=== PATIENT | female | born 1940 | race Caucasian/White ===

== ENCOUNTER 2019-01-29 11:15 | Outpatient (RCR) | payer MEDICARE, OTHER, SELFPAY ==
--- NOTE | 2018-12-21 11:20 | PT.OIE ---
Current Diagnoses Unilateral primary osteoarthritis, right knee (12/21/18) Pain in right knee (12/21/18) Stiffness of right knee, not elsewhere classified (12/21/18) Muscle weakness (generalized) (12/21/18) Other abnormalities of gait and mobility (12/21/18) Other fracture of upper end of right tibia, initial encounter for closed fracture (12/21/18) Provider Visit Care Team Role Provider Type Yosef Rivas MD Family Provider Physician Primary Care Provider Specialty: Family Practice Address: [address] [place] [address], [id number] Email: [email or web address] MD Attending Provider Physician Specialty: Orthopedic Surgery Address: [address] [place] [address], [id number] Email: [email or web address] Physical Therapy Initial Evaluation PT-OP-A Visit Information Start: 12/21/18 12:13 Freq: Status: Active Protocol: Document 12/21/18 11:20 RCC (Rec: 12/21/18 12:49 [email or web address]) Out-Patient Physical Therapy Visit Information Visit Information Visit Type Initial Evaluation Visit Start Time 11:20 Visit Stop Time 12:10 Total Visit Minutes 50 Visit Number 1 Number of SLD EDUCATIONAL AIDE Visits 0 Evaluation Information Evaluation Date 12/21/18 PT-OP-B Current Condition Start: 12/21/18 12:13 Freq: Status: Active Protocol: Document 12/21/18 11:20 RCC (Rec: 12/21/18 12:49 RCC [email or web address]) Current Condition History of Current Condition Onset Date 2017 Current Complaints R knee pain, unable to walk community distances History of Current Condition Pt is a 77 y/o female presenting to physical therapy with a c/o R knee pain and difficulty with walking, onset 2017. Pt states that she initially injured her R knee getting out of her son's car, twisting, and felt a popping in the R knee. She reports she tore her lateral meniscus. Pt states that during surgery, her bone was cut resulting in fracture of the tibia. She had to have an additional surgery 2 weeks later for an ORIF- screws to stabilize the tibia. Pt went to [facility] s/p surgery and then also did OP PT at [facility]. She admits that she never got back to walking like she did prior to surgeries, and that she cannot now even walk around the block with her dog due to imbalances, pain and fatigue. 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, HTN, Therapy/Recovery high cholesterol PT-OP-C Subjective Start: 12/21/18 12:13 Freq: Status: Active Protocol: Document 12/21/18 11:20 RCC (Rec: 12/21/18 12:49 [facility] [email or web address]) OP-PT Subjective Patient Comments Patient Comments Pt reports that she has not been the same since her past surgeries in 2017 OP-PT Pain Assessment Location R knee Intensity 3 Scale Used Numeric (1 - 10) Pain Aggravating Factors Activity Walking PT-OP-D Balance Start: 12/21/18 12:13 Freq: Status: Active Protocol: Document 12/21/18 11:20 RCC (Rec: 12/21/18 12:49 [facility] [email or web address]) Balance Tests Single Limb Standing Single Limb- Right <1 sec Single Limb- Left 3 sec with increased sway PT-OP-E Functional Tests Start: 12/21/18 12:13 Freq: Status: Active Protocol: Document 12/21/18 11:20 RCC (Rec: 12/21/18 12:49 RCC [email or web address]) Functional Tests 6 Minute Walk Test Distance 686 ft Device Used none Comments 1.91 ft/sec Dynamic Gait Index (DGI) Score 15 DGI Impairment Rating 20 to <40% Impaired (Score 15- 19) PT-OP-F Manual Assessment Start: 12/21/18 12:13 Freq: Status: Active Protocol: Document 12/21/18 11:20 RCC (Rec: 12/21/18 12:49 [facility] [email or web address]) Manual Assessments Soft Tissue Assessment Soft Tissue Mobility Assessment tenderness to palpation R adductors, pes anserine PT-OP-G Mobility & Gait Start: 12/21/18 12:13 Freq: Status: Active Protocol: Document 12/21/18 11:20 RCC (Rec: 12/21/18 12:49 RCC [email or web address]) OP Gait Assessment Comments Gait Comments decreased R knee flexion throughout gait, increased lateral sway, shortened step length bilaterally PT-OP-K Range of Motion Start: 12/21/18 12:13 Freq: Status: Active Protocol: Document 12/21/18 11:20 RCC (Rec: 12/21/18 12:49 RCC [email or web address]) Knee Goniometric Range of Motion Knee Measured in Degrees Right Patient Position Supine Flexion Active (degrees) 111 Flexion Passive (degrees) 115 Extension Active (degrees) 0 Left Patient Position Supine Flexion Active (degrees) 119 Flexion Passive (degrees) 122 Extension Active (degrees) 0 PT-OP-L Special Tests Start: 12/21/18 12:13 Freq: Status: Active Protocol: Document 12/21/18 11:20 RCC (Rec: 12/21/18 12:49 [facility] [email or web address]) Special Tests Knee Special Tests Vilma Test Test Results negative B Radha's Test Results negative B Varus- 25 Degrees Test Results negative B Varus- 0 Degrees Test Results negative B Valgus- 25 Degrees Test Results negative B Valgus- 0 Degrees Test Results negative B PT-OP-M Strength Start: 12/21/18 12:13 Freq: Status: Active Protocol: Document 12/21/18 11:20 RCC (Rec: 12/21/18 12:49 [facility] [email or web address]) Hip Strength Hip Manual Muscle Testing Right Flexion (L2) 4 Good External Rotation 4 Good Internal Rotation 4+ Good+ Left Flexion (L2) 4 Good External Rotation 4 Good Internal Rotation 4+ Good+ Knee Strength Knee Manual Muscle Testing Right Flexion (S2) 4+ Good+ Extension (L3) 4+ Good+ Left Flexion (S2) 5 Normal Extension (L3) 5 Normal Ankle/Foot Strength Ankle and Foot Manual Muscle Testing Right Dorsiflexion (L4) 5 Normal Comments SL heel raise: 4 reps Left Dorsiflexion (L4) 5 Normal Comments SL heel raise: 10 reps PT-OP-Q Treatments Start: 12/21/18 12:13 Freq: Status: Active Protocol: Document 12/21/18 11:20 RCC (Rec: 12/21/18 12:49 RCC [email or web address]) Therapeutic Exercises Supine Exercises heel slides Side right Reps/Minutes x2 with 10 sec hold bridging Supine Exercise Name with and without ball b/t knees Side bilateral Reps/Minutes x10 each SLR- hip flexion with LE ER Side right Reps/Minutes x10 Standing Exercises Heel raises Side bilateral Reps/Minutes x15 Comments increased weight shift to the R PT-OP-T Assessment and Plan Start: 12/21/18 12:13 Freq: Status: Active Protocol: Document 12/21/18 11:20 RCC (Rec: 12/21/18 12:49 RCC [email or web address]) Physical Therapy Assessment Rehab Potential Rehabilitation Potential Good Evaluation Complexity Number of Personal Factors/Comorbidities 1-2 Number of Body Systems Impaired 4 or More Clinical Presentation at Evaluation Stable Impairments Impairments Activity Tolerance Balance Functional Activities Functional Mobility Gait Pain ROM Soft Tissue Mobility Strength Goals 6 Minute Walk Test Impairment distance of 686 ft Short Term Goal (STG) Pt will ambulate >800 ft with 6 MWT, to demonstrate improved gait speed and tolerance. STG Duration 5 weeks Jail Goal (LTG) Pt will ambulate at least 950 ft with 6 MWT, to demonstrate improved gait speed and tolerance prior to d/c. LTG Duration 10 weeks LE weakness Impairment bilateral LE weakness Jail Goal (LTG) 5/5 R knee extension and flexion, bilateral hip flexion and ER to at least 4+/5 with manual muscle testing and be able to perform at least 10 repititions of SL heel raise on the R leg prior to d/c to demonstrate improvements in LE strength. Dynamic Gait Index Impairment DGI 15/24 Jail Goal (LTG) Pt will score at least 20/24 on Dynamic Gait Index to indicate a decrease in fall risk and demonstrate improved dynamic activity tolerance prior to d/c. LTG Duration 10 weeks Home Walking Program Impairment unable to tolerate walking 1 block outdoors on level ground Short Term Goal (STG) Pt will be able to walk 10 min , 3 days/wk outdoors on level ground without increased pain or fatigue. STG Duration 5 week Fitter Hand Goal (LTG) Pt will be able to walk at least 15 min, 5 days/wk outdoors on level ground without increased pain or fatigue prior to d/c (to resume as part of HEP). LTG Duration 10 weeks R knee ROM Impairment R knee AROM 0-111 Fitter Hand Goal (LTG) R knee AROM 0-120 degrees prior to d/c to assist with tolerating stairs and functional sit<->stand on low seats. LTG Duration 10 weeks Assessment Summary Assessment Pt presents with poor tolerance to gait, with increased sway with fatigue and head movements. Pt able to ambulate at a rate of 1.91 ft /sec on 6 Minute Walk Test, indicating that she may demonstrate further functional decline if not improved. Her Dynamic Gait Index score was 15/24, indicating an increased risk for falls. At this time, pt's R knee ROM is limited as well as slight weakness of the R knee compared to the L. Overall, pt is generally deconditioned, with fatigue when participating in 6 Minute Walk Test. She would greatly benefit from skilled physical therapy to progress her R knee ROM, LE strength, static and dynamic stability with standing and walking, and to progress toward a home walking program to improve cardiovascular and activity tolerance. Pt will likely require at least 10 weeks of skilled physical therapy given her length of time with declining function and inactivity s/p R knee ORIF in 2017. Physical Therapy Plan Frequency and Duration Frequency of Treatment 2x/Week Duration of Treatment 10 weeks Plan of Care Start Date 12/21/18 Plan of Care End Date 03/01/19 Therapeutic Interventions Therapeutic Interventions Aquatic Therapy Balance Training Gait Training Home Exercise Program Manual Therapy Neuromuscular Re-education Patient/Caregiver Education Self-Care/Home Management Soft Tissue Mobilization Taping Therapeutic Activities Therapeutic Exercises Modalities Cold Pack/Ice Massage Electric Stimulation Hot Packs Ultrasound Next Visit Focus/Plan Next Note Type Treatment Note Next Visit Plan dynamic and static balance training, Shuttle Recovery, hip and R knee strengthening as tolerated
--- NOTE | 2018-12-25 12:01 | PT.OTN ---
Current Diagnoses Unilateral primary osteoarthritis, right knee (12/25/18) Other fracture of upper end of right tibia, initial encounter for closed fracture (12/25/18) Physical Therapy Treatment Note PT-OP-A Visit Information Start: 12/21/18 12:13 Freq: Status: Active Protocol: Document 12/25/18 11:15 DCW (Rec: 12/25/18 12:01 DCW [id number]) Out-Patient Physical Therapy Visit Information Visit Information Visit Type Treatment Note Visit Start Time 11:15 Visit Stop Time 12:00 Total Visit Minutes 45 Visit Number 2 Number of PATROL CAPTAIN Visits 0 Evaluation Information Evaluation Date 12/21/18 PT-OP-B Current Condition Start: 12/21/18 12:13 Freq: Status: Active Protocol: Document 12/21/18 11:20 RCC (Rec: 12/21/18 12:49 RCC [email or web address]) Current Condition History of Current Condition Onset Date 2016 Current Complaints R knee pain, unable to walk community distances History of Current Condition Pt is a 77 y/o female presenting to physical therapy with a c/o R knee pain and difficulty with walking, onset 2017. Pt states that she initially injured her R knee getting out of her son's car, twisting, and felt a popping in the R knee. She reports she tore her lateral meniscus. Pt states that during surgery, her bone was cut resulting in fracture of the tibia. She had to have an additional surgery 2 weeks later for an ORIF- screws to stabilize the tibia. Pt went to [facility] s/p surgery and then also did OP PT at [facility]. She admits that she never got back to walking like she did prior to surgeries, and that she cannot now even walk around the block with her dog due to imbalances, pain and fatigue. 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 PT-OP-D Balance Start: 12/21/18 12:13 Freq: Status: Active Protocol: Document 12/21/18 11:20 RCC (Rec: 12/21/18 12:49 RCC [email or web address]) Balance Tests Single Limb Standing Single Limb- Right <1 sec Single Limb- Left 3 sec with increased sway PT-OP-E Functional Tests Start: 12/21/18 12:13 Freq: Status: Active Protocol: Document 12/21/18 11:20 RCC (Rec: 12/21/18 12:49 RCC [email or web address]) Functional Tests 6 Minute Walk Test Distance 686 ft Device Used none Comments 1.91 ft/sec Dynamic Gait Index (DGI) Score 15 DGI Impairment Rating 20 to <40% Impaired (Score 15- 19) PT-OP-F Manual Assessment Start: 12/21/18 12:13 Freq: Status: Active Protocol: Document 12/21/18 11:20 RCC (Rec: 12/21/18 12:49 RCC [email or web address]) Manual Assessments Soft Tissue Assessment Soft Tissue Mobility Assessment tenderness to palpation R adductors, pes anserine PT-OP-G Mobility & Gait Start: 12/21/18 12:13 Freq: Status: Active Protocol: Document 12/21/18 11:20 RCC (Rec: 12/21/18 12:49 RCC [email or web address]) OP Gait Assessment Comments Gait Comments decreased R knee flexion throughout gait, increased lateral sway, shortened step length bilaterally PT-OP-K Range of Motion Start: 12/21/18 12:13 Freq: Status: Active Protocol: Document 12/21/18 11:20 RCC (Rec: 12/21/18 12:49 RCC [email or web address]) Knee Goniometric Range of Motion Knee Measured in Degrees Right Patient Position Supine Flexion Active (degrees) 111 Flexion Passive (degrees) 115 Extension Active (degrees) 0 Left Patient Position Supine Flexion Active (degrees) 119 Flexion Passive (degrees) 122 Extension Active (degrees) 0 PT-OP-L Special Tests Start: 12/21/18 12:13 Freq: Status: Active Protocol: Document 12/21/18 11:20 RCC (Rec: 12/21/18 12:49 RCC [email or web address]) Special Tests Knee Special Tests Vilma Test Test Results negative B Radha's Test Results negative B Varus- 25 Degrees Test Results negative B Varus- 0 Degrees Test Results negative B Valgus- 25 Degrees Test Results negative B Valgus- 0 Degrees Test Results negative B PT-OP-M Strength Start: 12/21/18 12:13 Freq: Status: Active Protocol: Document 12/21/18 11:20 RCC (Rec: 12/21/18 12:49 RCC [email or web address]) Hip Strength Hip Manual Muscle Testing Right Flexion (L2) 4 Good External Rotation 4 Good Internal Rotation 4+ Good+ Left Flexion (L2) 4 Good External Rotation 4 Good Internal Rotation 4+ Good+ Knee Strength Knee Manual Muscle Testing Right Flexion (S2) 4+ Good+ Extension (L3) 4+ Good+ Left Flexion (S2) 5 Normal Extension (L3) 5 Normal Ankle/Foot Strength Ankle and Foot Manual Muscle Testing Right Dorsiflexion (L4) 5 Normal Comments SL heel raise: 4 reps Left Dorsiflexion (L4) 5 Normal Comments SL heel raise: 10 reps PT-OP-Q Treatments Start: 12/21/18 12:13 Freq: Status: Active Protocol: Document 12/25/18 11:15 DCW (Rec: 12/25/18 12:01 DCW [id number]) Cardio Equipment Recumbent Elliptical (Biodex) Duration (Minutes) 5 Resistance 4 Seat Position 6 Gym Equipment Cable Column (Body Solid) Hip Adduction Resistance 40# Hip Abduction Resistance 40# Shuttle Recovery Unilateral Squats Resistance 62# Shuttle Recovery Platform Stable Bilateral Squats Resistance 100# Shuttle Recovery Platform Stable Therapeutic Exercises Sitting Exercises Long Arc Quad Sitting Exercise Name LAQ Resistance 4# Reps/Minutes 2x10 Standing Exercises Step-ups Standing Exercise Name Step-ups Side bilateral Equipment Used 4 step Hamstring Curls Standing Exercise Name HS Curls Resistance 4# Reps/Minutes 2x10 Toe-taps Standing Exercise Name Toe-taps on 6 step Resistance 4# Other Exercises Resisted Fwd/Retro Ambulation Other Exercise Name Resisted Fwd/Retro Ambulation Resistance Yellow Equipment Used T-band Resisted Side-stepping Other Exercise Name Resisted Side-stepping Resistance Yellow Equipment Used T-band PT-OP-T Assessment and Plan Start: 12/21/18 12:13 Freq: Status: Active Protocol: Document 12/25/18 11:15 DCW (Rec: 12/25/18 12:01 DCW [id number]) Physical Therapy Assessment Impairments Impairments Activity Tolerance Balance Functional Activities Functional Mobility Gait Pain ROM Soft Tissue Mobility Strength Goals 6 Minute Walk Test Impairment distance of 686 ft Short Term Goal (STG) Pt will ambulate >800 ft with 6 MWT, to demonstrate improved gait speed and tolerance. STG Duration 5 weeks Shank Pinner Goal (LTG) Pt will ambulate at least 950 ft with 6 MWT, to demonstrate improved gait speed and tolerance prior to d/c. LTG Duration 10 weeks LE weakness Impairment bilateral LE weakness Half-Way Goal (LTG) 5/5 R knee extension and flexion, bilateral hip flexion and ER to at least 4+/5 with manual muscle testing and be able to perform at least 10 repititions of SL heel raise on the R leg prior to d/c to demonstrate improvements in LE strength. Dynamic Gait Index Impairment DGI 15/24 Half-Way Goal (LTG) Pt will score at least 20/24 on Dynamic Gait Index to indicate a decrease in fall risk and demonstrate improved dynamic activity tolerance prior to d/c. LTG Duration 10 weeks Home Walking Program Impairment unable to tolerate walking 1 block outdoors on level ground Short Term Goal (STG) Pt will be able to walk 10 min , 3 days/wk outdoors on level ground without increased pain or fatigue. STG Duration 5 week Shank Pinner Goal (LTG) Pt will be able to walk at least 15 min, 5 days/wk outdoors on level ground without increased pain or fatigue prior to d/c (to resume as part of HEP). LTG Duration 10 weeks R knee ROM Impairment R knee AROM 0-111 Shank Pinner Goal (LTG) R knee AROM 0-120 degrees prior to d/c to assist with tolerating stairs and functional sit<->stand on low seats. LTG Duration 10 weeks Assessment Summary Assessment Pt tolerated treatment well, reports that she was surprised these exercises are actually working me, I wouldn't expect them to. Physical Therapy Plan Frequency and Duration Frequency of Treatment 2x/Week Duration of Treatment 10 weeks Plan of Care Start Date 12/21/18 Plan of Care End Date 03/01/19 Therapeutic Interventions Therapeutic Interventions Aquatic Therapy Balance Training Gait Training Home Exercise Program Manual Therapy Neuromuscular Re-education Patient/Caregiver Education Self-Care/Home Management Soft Tissue Mobilization Taping Therapeutic Activities Therapeutic Exercises Modalities Cold Pack/Ice Massage Electric Stimulation Hot Packs Ultrasound Next Visit Focus/Plan Next Note Type Treatment Note Next Visit Plan dynamic and static balance training, Shuttle Recovery, hip and R knee strengthening as tolerated
--- NOTE | 2018-12-28 11:59 | PT.OTN ---
Current Diagnoses Unilateral primary osteoarthritis, right knee (12/28/18) Other fracture of upper end of right tibia, initial encounter for closed fracture (12/28/18) Physical Therapy Treatment Note PT-OP-A Visit Information Start: 12/21/18 12:13 Freq: Status: Active Protocol: Document 12/28/18 11:15 DCW (Rec: 12/28/18 11:59 DCW [id number]) Out-Patient Physical Therapy Visit Information Visit Information Visit Type Treatment Note Visit Start Time 11:15 Visit Stop Time 12:00 Total Visit Minutes 45 Visit Number 3 Number of NETWORK ADMINISTRATOR Visits 0 Evaluation Information Evaluation Date 12/21/18 PT-OP-B Current Condition Start: 12/21/18 12:13 Freq: Status: Active Protocol: Document 12/21/18 11:20 RCC (Rec: 12/21/18 12:49 RCC [email or web address]) Current Condition History of Current Condition Onset Date 2016 Current Complaints R knee pain, unable to walk community distances History of Current Condition Pt is a 77 y/o female presenting to physical therapy with a c/o R knee pain and difficulty with walking, onset 2017. Pt states that she initially injured her R knee getting out of her son's car, twisting, and felt a popping in the R knee. She reports she tore her lateral meniscus. Pt states that during surgery, her bone was cut resulting in fracture of the tibia. She had to have an additional surgery 2 weeks later for an ORIF- screws to stabilize the tibia. Pt went to [facility] s/p surgery and then also did OP PT at [facility]. She admits that she never got back to walking like she did prior to surgeries, and that she cannot now even walk around the block with her dog due to imbalances, pain and fatigue. 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 PT-OP-D Balance Start: 12/21/18 12:13 Freq: Status: Active Protocol: Document 12/21/18 11:20 RCC (Rec: 12/21/18 12:49 RCC [email or web address]) Balance Tests Single Limb Standing Single Limb- Right <1 sec Single Limb- Left 3 sec with increased sway PT-OP-E Functional Tests Start: 12/21/18 12:13 Freq: Status: Active Protocol: Document 12/21/18 11:20 RCC (Rec: 12/21/18 12:49 RCC [email or web address]) Functional Tests 6 Minute Walk Test Distance 686 ft Device Used none Comments 1.91 ft/sec Dynamic Gait Index (DGI) Score 15 DGI Impairment Rating 20 to <40% Impaired (Score 15- 19) PT-OP-F Manual Assessment Start: 12/21/18 12:13 Freq: Status: Active Protocol: Document 12/21/18 11:20 RCC (Rec: 12/21/18 12:49 RCC [email or web address]) Manual Assessments Soft Tissue Assessment Soft Tissue Mobility Assessment tenderness to palpation R adductors, pes anserine PT-OP-G Mobility & Gait Start: 12/21/18 12:13 Freq: Status: Active Protocol: Document 12/21/18 11:20 RCC (Rec: 12/21/18 12:49 RCC [email or web address]) OP Gait Assessment Comments Gait Comments decreased R knee flexion throughout gait, increased lateral sway, shortened step length bilaterally PT-OP-K Range of Motion Start: 12/21/18 12:13 Freq: Status: Active Protocol: Document 12/21/18 11:20 RCC (Rec: 12/21/18 12:49 RCC [email or web address]) Knee Goniometric Range of Motion Knee Measured in Degrees Right Patient Position Supine Flexion Active (degrees) 111 Flexion Passive (degrees) 115 Extension Active (degrees) 0 Left Patient Position Supine Flexion Active (degrees) 119 Flexion Passive (degrees) 122 Extension Active (degrees) 0 PT-OP-L Special Tests Start: 12/21/18 12:13 Freq: Status: Active Protocol: Document 12/21/18 11:20 RCC (Rec: 12/21/18 12:49 RCC [email or web address]) Special Tests Knee Special Tests Vilma Test Test Results negative B Radha's Test Results negative B Varus- 25 Degrees Test Results negative B Varus- 0 Degrees Test Results negative B Valgus- 25 Degrees Test Results negative B Valgus- 0 Degrees Test Results negative B PT-OP-M Strength Start: 12/21/18 12:13 Freq: Status: Active Protocol: Document 12/21/18 11:20 RCC (Rec: 12/21/18 12:49 RCC [email or web address]) Hip Strength Hip Manual Muscle Testing Right Flexion (L2) 4 Good External Rotation 4 Good Internal Rotation 4+ Good+ Left Flexion (L2) 4 Good External Rotation 4 Good Internal Rotation 4+ Good+ Knee Strength Knee Manual Muscle Testing Right Flexion (S2) 4+ Good+ Extension (L3) 4+ Good+ Left Flexion (S2) 5 Normal Extension (L3) 5 Normal Ankle/Foot Strength Ankle and Foot Manual Muscle Testing Right Dorsiflexion (L4) 5 Normal Comments SL heel raise: 4 reps Left Dorsiflexion (L4) 5 Normal Comments SL heel raise: 10 reps PT-OP-Q Treatments Start: 12/21/18 12:13 Freq: Status: Active Protocol: Document 12/28/18 11:15 DCW (Rec: 12/28/18 11:59 DCW [id number]) Cardio Equipment Recumbent Stepper (Sci-Fit) Duration (Minutes) 5 Resistance 3 Seat Position 9 Gym Equipment Cable Column (Body Solid) Hip Adduction Resistance 40# Hip Abduction Resistance 40# Shuttle Recovery Unilateral Squats Resistance 62# Shuttle Recovery Platform Stable Bilateral Squats Resistance 112# Shuttle Recovery Platform Stable Therapeutic Exercises Sitting Exercises Long Arc Quad Sitting Exercise Name LAQ Resistance 4# Reps/Minutes 2x10 Standing Exercises Heelcord Stretch Standing Exercise Name Gastroc stretch Equipment Used LEIGH Squats Standing Exercise Name Minisquats at rail Reps/Minutes x20 Hamstring Curls Standing Exercise Name HS Curls Resistance 4# Reps/Minutes 2x10 Toe-taps Standing Exercise Name Toe-taps on 6 step Resistance 4# Heel raises Side bilateral Reps/Minutes x15 Other Exercises Hurdles Other Exercise Name Hurdles Resistance 4# Equipment Used Ankle weights Resisted Fwd/Retro Ambulation Other Exercise Name Resisted Fwd/Retro Ambulation Resistance Yellow Equipment Used T-band Resisted Side-stepping Other Exercise Name Resisted Side-stepping Resistance Yellow Equipment Used T-band PT-OP-T Assessment and Plan Start: 12/21/18 12:13 Freq: Status: Active Protocol: Document 12/28/18 11:15 DCW (Rec: 12/28/18 11:59 DCW [id number]) Physical Therapy Assessment Impairments Impairments Activity Tolerance Balance Functional Activities Functional Mobility Gait Pain ROM Soft Tissue Mobility Strength Goals 6 Minute Walk Test Impairment distance of 686 ft Short Term Goal (STG) Pt will ambulate >800 ft with 6 MWT, to demonstrate improved gait speed and tolerance. STG Duration 5 weeks Rope Maker Goal (LTG) Pt will ambulate at least 950 ft with 6 MWT, to demonstrate improved gait speed and tolerance prior to d/c. LTG Duration 10 weeks LE weakness Impairment bilateral LE weakness Longterm Goal (LTG) 5/5 R knee extension and flexion, bilateral hip flexion and ER to at least 4+/5 with manual muscle testing and be able to perform at least 10 repititions of SL heel raise on the R leg prior to d/c to demonstrate improvements in LE strength. Dynamic Gait Index Impairment DGI 15/24 Longterm Goal (LTG) Pt will score at least 20/24 on Dynamic Gait Index to indicate a decrease in fall risk and demonstrate improved dynamic activity tolerance prior to d/c. LTG Duration 10 weeks Home Walking Program Impairment unable to tolerate walking 1 block outdoors on level ground Short Term Goal (STG) Pt will be able to walk 10 min , 3 days/wk outdoors on level ground without increased pain or fatigue. STG Duration 5 week Rope Maker Goal (LTG) Pt will be able to walk at least 15 min, 5 days/wk outdoors on level ground without increased pain or fatigue prior to d/c (to resume as part of HEP). LTG Duration 10 weeks R knee ROM Impairment R knee AROM 0-111 Longterm Goal (LTG) R knee AROM 0-120 degrees prior to d/c to assist with tolerating stairs and functional sit<->stand on low seats. LTG Duration 10 weeks Assessment Summary Assessment Pt did well today, did not require rest breaks, however does tend to just say alright , I'm done when she is tired of doing an exercise and self- limit herself. Physical Therapy Plan Frequency and Duration Frequency of Treatment 2x/Week Duration of Treatment 10 weeks Plan of Care Start Date 12/21/18 Plan of Care End Date 03/01/19 Therapeutic Interventions Therapeutic Interventions Aquatic Therapy Balance Training Gait Training Home Exercise Program Manual Therapy Neuromuscular Re-education Patient/Caregiver Education Self-Care/Home Management Soft Tissue Mobilization Taping Therapeutic Activities Therapeutic Exercises Modalities Cold Pack/Ice Massage Electric Stimulation Hot Packs Ultrasound Next Visit Focus/Plan Next Note Type Treatment Note Next Visit Plan dynamic and static balance training, Shuttle Recovery, hip and R knee strengthening as tolerated
--- NOTE | 2019-01-01 12:02 | PT.OTN ---
Current Diagnoses Unilateral primary osteoarthritis, right knee (01/01/19) Other fracture of upper end of right tibia, initial encounter for closed fracture (01/01/19) Physical Therapy Treatment Note PT-OP-A Visit Information Start: 12/21/18 12:13 Freq: Status: Active Protocol: Document 01/01/19 11:05 DCW (Rec: 01/01/19 12:00 DCW [id number]) Out-Patient Physical Therapy Visit Information Visit Information Visit Type Treatment Note Visit Start Time 11:05 Visit Stop Time 11:50 Total Visit Minutes 45 Visit Number 4 Number of GRANITE POLISHER MACHINE Visits 0 Evaluation Information Evaluation Date 12/21/18 PT-OP-B Current Condition Start: 12/21/18 12:13 Freq: Status: Active Protocol: Document 12/21/18 11:20 RCC (Rec: 12/21/18 12:49 RCC [email or web address]) Current Condition History of Current Condition Onset Date 2016 Current Complaints R knee pain, unable to walk community distances History of Current Condition Pt is a 77 y/o female presenting to physical therapy with a c/o R knee pain and difficulty with walking, onset 2017. Pt states that she initially injured her R knee getting out of her son's car, twisting, and felt a popping in the R knee. She reports she tore her lateral meniscus. Pt states that during surgery, her bone was cut resulting in fracture of the tibia. She had to have an additional surgery 2 weeks later for an ORIF- screws to stabilize the tibia. Pt went to [facility] s/p surgery and then also did OP PT at [facility]. She admits that she never got back to walking like she did prior to surgeries, and that she cannot now even walk around the block with her dog due to imbalances, pain and fatigue. 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, HTN, Therapy/Recovery high cholesterol PT-OP-C Subjective Start: 12/21/18 12:13 Freq: Status: Active Protocol: Document 01/01/19 11:05 DCW (Rec: 01/01/19 12:00 DCW [id number]) OP-PT Subjective Patient Comments Patient Comments Pt reports she was out to [place] this weekend, walked around too much, and now she is pretty sore today. PT-OP-D Balance Start: 12/21/18 12:13 Freq: Status: Active Protocol: Document 12/21/18 11:20 RCC (Rec: 12/21/18 12:49 RCC [email or web address]) Balance Tests Single Limb Standing Single Limb- Right <1 sec Single Limb- Left 3 sec with increased sway PT-OP-E Functional Tests Start: 12/21/18 12:13 Freq: Status: Active Protocol: Document 12/21/18 11:20 RCC (Rec: 12/21/18 12:49 RCC [email or web address]) Functional Tests 6 Minute Walk Test Distance 686 ft Device Used none Comments 1.91 ft/sec Dynamic Gait Index (DGI) Score 15 DGI Impairment Rating 20 to <40% Impaired (Score 15- 19) PT-OP-F Manual Assessment Start: 12/21/18 12:13 Freq: Status: Active Protocol: Document 12/21/18 11:20 RCC (Rec: 12/21/18 12:49 RCC [email or web address]) Manual Assessments Soft Tissue Assessment Soft Tissue Mobility Assessment tenderness to palpation R adductors, pes anserine PT-OP-G Mobility & Gait Start: 12/21/18 12:13 Freq: Status: Active Protocol: Document 12/21/18 11:20 RCC (Rec: 12/21/18 12:49 RCC [email or web address]) OP Gait Assessment Comments Gait Comments decreased R knee flexion throughout gait, increased lateral sway, shortened step length bilaterally PT-OP-K Range of Motion Start: 12/21/18 12:13 Freq: Status: Active Protocol: Document 12/21/18 11:20 RCC (Rec: 12/21/18 12:49 RCC [email or web address]) Knee Goniometric Range of Motion Knee Measured in Degrees Right Patient Position Supine Flexion Active (degrees) 111 Flexion Passive (degrees) 115 Extension Active (degrees) 0 Left Patient Position Supine Flexion Active (degrees) 119 Flexion Passive (degrees) 122 Extension Active (degrees) 0 PT-OP-L Special Tests Start: 12/21/18 12:13 Freq: Status: Active Protocol: Document 12/21/18 11:20 RCC (Rec: 12/21/18 12:49 RCC [email or web address]) Special Tests Knee Special Tests Vilma Test Test Results negative B Radha's Test Results negative B Varus- 25 Degrees Test Results negative B Varus- 0 Degrees Test Results negative B Valgus- 25 Degrees Test Results negative B Valgus- 0 Degrees Test Results negative B PT-OP-M Strength Start: 12/21/18 12:13 Freq: Status: Active Protocol: Document 12/21/18 11:20 RCC (Rec: 12/21/18 12:49 RCC [email or web address]) Hip Strength Hip Manual Muscle Testing Right Flexion (L2) 4 Good External Rotation 4 Good Internal Rotation 4+ Good+ Left Flexion (L2) 4 Good External Rotation 4 Good Internal Rotation 4+ Good+ Knee Strength Knee Manual Muscle Testing Right Flexion (S2) 4+ Good+ Extension (L3) 4+ Good+ Left Flexion (S2) 5 Normal Extension (L3) 5 Normal Ankle/Foot Strength Ankle and Foot Manual Muscle Testing Right Dorsiflexion (L4) 5 Normal Comments SL heel raise: 4 reps Left Dorsiflexion (L4) 5 Normal Comments SL heel raise: 10 reps PT-OP-Q Treatments Start: 12/21/18 12:13 Freq: Status: Active Protocol: Document 01/01/19 11:05 DCW (Rec: 01/01/19 12:00 DCW [id number]) Cardio Equipment Recumbent Elliptical (Biodex) Duration (Minutes) 5 Resistance 4 Seat Position 6 Gym Equipment Cable Column (Body Solid) Hip Adduction Resistance 40# Hip Abduction Resistance 40# Shuttle Recovery Unilateral Squats Resistance 62# Shuttle Recovery Platform Stable Bilateral Squats Resistance 112# Shuttle Recovery Platform Stable Therapeutic Exercises Standing Exercises Heelcord Stretch Standing Exercise Name Gastroc stretch Equipment Used LEIGH Squats Standing Exercise Name Minisquats at rail Reps/Minutes x20 Hamstring Curls Standing Exercise Name HS Curls Resistance 5# Reps/Minutes 2x10 Toe-taps Standing Exercise Name Toe-taps on 6 step Resistance 5# Other Exercises Hurdles Other Exercise Name Hurdles - Fwd and Lateral Resistance 5# Equipment Used Ankle weights Resisted Fwd/Retro Ambulation Other Exercise Name Resisted Fwd/Retro Ambulation Resistance Green Equipment Used T-band Resisted Side-stepping Other Exercise Name Resisted Side-stepping Resistance Green Equipment Used T-band PT-OP-T Assessment and Plan Start: 12/21/18 12:13 Freq: Status: Active Protocol: Document 01/01/19 11:05 DCW (Rec: 01/01/19 12:00 DCW [id number]) Physical Therapy Assessment Impairments Impairments Activity Tolerance Balance Functional Activities Functional Mobility Gait Pain ROM Soft Tissue Mobility Strength Goals 6 Minute Walk Test Impairment distance of 686 ft Short Term Goal (STG) Pt will ambulate >800 ft with 6 MWT, to demonstrate improved gait speed and tolerance. STG Duration 5 weeks Usp Goal (LTG) Pt will ambulate at least 950 ft with 6 MWT, to demonstrate improved gait speed and tolerance prior to d/c. LTG Duration 10 weeks LE weakness Impairment bilateral LE weakness Usp Goal (LTG) 5/5 R knee extension and flexion, bilateral hip flexion and ER to at least 4+/5 with manual muscle testing and be able to perform at least 10 repititions of SL heel raise on the R leg prior to d/c to demonstrate improvements in LE strength. Dynamic Gait Index Impairment DGI 15/24 Usp Goal (LTG) Pt will score at least 20/24 on Dynamic Gait Index to indicate a decrease in fall risk and demonstrate improved dynamic activity tolerance prior to d/c. LTG Duration 10 weeks Home Walking Program Impairment unable to tolerate walking 1 block outdoors on level ground Short Term Goal (STG) Pt will be able to walk 10 min , 3 days/wk outdoors on level ground without increased pain or fatigue. STG Duration 5 week Usp Goal (LTG) Pt will be able to walk at least 15 min, 5 days/wk outdoors on level ground without increased pain or fatigue prior to d/c (to resume as part of HEP). LTG Duration 10 weeks R knee ROM Impairment R knee AROM 0-111 Usp Goal (LTG) R knee AROM 0-120 degrees prior to d/c to assist with tolerating stairs and functional sit<->stand on low seats. LTG Duration 10 weeks Assessment Summary Assessment Pt tolerated treatment much better today, able to finish exercises without stopping prematurely. Pt noted she has been having difficulty getting her feet up high enough to clear obstacles when walking. Physical Therapy Plan Frequency and Duration Frequency of Treatment 2x/Week Duration of Treatment 10 weeks Plan of Care Start Date 12/21/18 Plan of Care End Date 03/01/19 Therapeutic Interventions Therapeutic Interventions Aquatic Therapy Balance Training Gait Training Home Exercise Program Manual Therapy Neuromuscular Re-education Patient/Caregiver Education Self-Care/Home Management Soft Tissue Mobilization Taping Therapeutic Activities Therapeutic Exercises Modalities Cold Pack/Ice Massage Electric Stimulation Hot Packs Ultrasound Next Visit Focus/Plan Next Note Type Treatment Note Next Visit Plan dynamic and static balance training, Shuttle Recovery, hip and R knee strengthening as tolerated
--- NOTE | 2019-01-04 11:58 | PT.OTN ---
Current Diagnoses Unilateral primary osteoarthritis, right knee (01/04/19) Other fracture of upper end of right tibia, initial encounter for closed fracture (01/04/19) Physical Therapy Treatment Note PT-OP-A Visit Information Start: 12/21/18 12:13 Freq: Status: Active Protocol: Document 01/04/19 11:15 DCW (Rec: 01/04/19 11:58 DCW [id number]) Out-Patient Physical Therapy Visit Information Visit Information Visit Type Treatment Note Visit Start Time 11:15 Visit Stop Time 12:00 Total Visit Minutes 45 Visit Number 5 Number of SALOON KEEPER Visits 0 Evaluation Information Evaluation Date 12/21/18 PT-OP-B Current Condition Start: 12/21/18 12:13 Freq: Status: Active Protocol: Document 12/21/18 11:20 RCC (Rec: 12/21/18 12:49 RCC [email or web address]) Current Condition History of Current Condition Onset Date 2016 Current Complaints R knee pain, unable to walk community distances History of Current Condition Pt is a 77 y/o female presenting to physical therapy with a c/o R knee pain and difficulty with walking, onset 2017. Pt states that she initially injured her R knee getting out of her son's car, twisting, and felt a popping in the R knee. She reports she tore her lateral meniscus. Pt states that during surgery, her bone was cut resulting in fracture of the tibia. She had to have an additional surgery 2 weeks later for an ORIF- screws to stabilize the tibia. Pt went to [facility] s/p surgery and then also did OP PT at [facility]. She admits that she never got back to walking like she did prior to surgeries, and that she cannot now even walk around the block with her dog due to imbalances, pain and fatigue. 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 I didn't do anything crazy yesterday, but I'm just sort of limpy today. PT-OP-D Balance Start: 12/21/18 12:13 Freq: Status: Active Protocol: Document 12/21/18 11:20 RCC (Rec: 12/21/18 12:49 RCC [email or web address]) Balance Tests Single Limb Standing Single Limb- Right <1 sec Single Limb- Left 3 sec with increased sway PT-OP-E Functional Tests Start: 12/21/18 12:13 Freq: Status: Active Protocol: Document 12/21/18 11:20 RCC (Rec: 12/21/18 12:49 RCC [email or web address]) Functional Tests 6 Minute Walk Test Distance 686 ft Device Used none Comments 1.91 ft/sec Dynamic Gait Index (DGI) Score 15 DGI Impairment Rating 20 to <40% Impaired (Score 15- 19) PT-OP-F Manual Assessment Start: 12/21/18 12:13 Freq: Status: Active Protocol: Document 12/21/18 11:20 RCC (Rec: 12/21/18 12:49 RCC [email or web address]) Manual Assessments Soft Tissue Assessment Soft Tissue Mobility Assessment tenderness to palpation R adductors, pes anserine PT-OP-G Mobility & Gait Start: 12/21/18 12:13 Freq: Status: Active Protocol: Document 12/21/18 11:20 RCC (Rec: 12/21/18 12:49 RCC [email or web address]) OP Gait Assessment Comments Gait Comments decreased R knee flexion throughout gait, increased lateral sway, shortened step length bilaterally PT-OP-K Range of Motion Start: 12/21/18 12:13 Freq: Status: Active Protocol: Document 12/21/18 11:20 RCC (Rec: 12/21/18 12:49 RCC [email or web address]) Knee Goniometric Range of Motion Knee Measured in Degrees Right Patient Position Supine Flexion Active (degrees) 111 Flexion Passive (degrees) 115 Extension Active (degrees) 0 Left Patient Position Supine Flexion Active (degrees) 119 Flexion Passive (degrees) 122 Extension Active (degrees) 0 PT-OP-L Special Tests Start: 12/21/18 12:13 Freq: Status: Active Protocol: Document 12/21/18 11:20 RCC (Rec: 12/21/18 12:49 RCC [email or web address]) Special Tests Knee Special Tests Vilma Test Test Results negative B Radha's Test Results negative B Varus- 25 Degrees Test Results negative B Varus- 0 Degrees Test Results negative B Valgus- 25 Degrees Test Results negative B Valgus- 0 Degrees Test Results negative B PT-OP-M Strength Start: 12/21/18 12:13 Freq: Status: Active Protocol: Document 12/21/18 11:20 RCC (Rec: 12/21/18 12:49 RCC [email or web address]) Hip Strength Hip Manual Muscle Testing Right Flexion (L2) 4 Good External Rotation 4 Good Internal Rotation 4+ Good+ Left Flexion (L2) 4 Good External Rotation 4 Good Internal Rotation 4+ Good+ Knee Strength Knee Manual Muscle Testing Right Flexion (S2) 4+ Good+ Extension (L3) 4+ Good+ Left Flexion (S2) 5 Normal Extension (L3) 5 Normal Ankle/Foot Strength Ankle and Foot Manual Muscle Testing Right Dorsiflexion (L4) 5 Normal Comments SL heel raise: 4 reps Left Dorsiflexion (L4) 5 Normal Comments SL heel raise: 10 reps PT-OP-Q Treatments Start: 12/21/18 12:13 Freq: Status: Active Protocol: Document 01/04/19 11:15 DCW (Rec: 01/04/19 11:58 DCW [id number]) Cardio Equipment Recumbent Elliptical (Biodex) Duration (Minutes) 5 Resistance 5 Seat Position 7 Gym Equipment Cable Column (Body Solid) Hip Adduction Resistance 40# Hip Abduction Resistance 40# Shuttle Recovery Unilateral Squats Resistance 62# Shuttle Recovery Platform Stable Bilateral Squats Resistance 112# Shuttle Recovery Platform Stable Therapeutic Exercises Standing Exercises Hip Abduction Standing Exercise Name Abduction Side bilateral Resistance Lv 3 Equipment Used T-band Hip Extension Standing Exercise Name Extension Side bilateral Resistance Lv 3 Equipment Used T-band Terminal Knee Extension Standing Exercise Name TKE Side right Resistance Lv 3 Equipment Used T-band Heelcord Stretch Standing Exercise Name Gastroc stretch Equipment Used LEIGH Toe-taps Standing Exercise Name Toe-taps on 8 step Resistance 5# Other Exercises Resisted Fwd/Retro Ambulation Other Exercise Name Resisted Fwd/Retro Ambulation Resistance Green Equipment Used T-band Resisted Side-stepping Other Exercise Name Resisted Side-stepping Resistance Green Equipment Used T-band PT-OP-T Assessment and Plan Start: 12/21/18 12:13 Freq: Status: Active Protocol: Document 01/04/19 11:15 DCW (Rec: 01/04/19 11:58 DCW [id number]) Physical Therapy Assessment Impairments Impairments Activity Tolerance Balance Functional Activities Functional Mobility Gait Pain ROM Soft Tissue Mobility Strength Goals 6 Minute Walk Test Impairment distance of 686 ft Short Term Goal (STG) Pt will ambulate >800 ft with 6 MWT, to demonstrate improved gait speed and tolerance. STG Duration 5 weeks Correctional Captain Goal (LTG) Pt will ambulate at least 950 ft with 6 MWT, to demonstrate improved gait speed and tolerance prior to d/c. LTG Duration 10 weeks LE weakness Impairment bilateral LE weakness Skilled Nursing Goal (LTG) 5/5 R knee extension and flexion, bilateral hip flexion and ER to at least 4+/5 with manual muscle testing and be able to perform at least 10 repititions of SL heel raise on the R leg prior to d/c to demonstrate improvements in LE strength. Dynamic Gait Index Impairment DGI 15/24 Correctional Captain Goal (LTG) Pt will score at least 20/24 on Dynamic Gait Index to indicate a decrease in fall risk and demonstrate improved dynamic activity tolerance prior to d/c. LTG Duration 10 weeks Home Walking Program Impairment unable to tolerate walking 1 block outdoors on level ground Short Term Goal (STG) Pt will be able to walk 10 min , 3 days/wk outdoors on level ground without increased pain or fatigue. STG Duration 5 week Correctional Captain Goal (LTG) Pt will be able to walk at least 15 min, 5 days/wk outdoors on level ground without increased pain or fatigue prior to d/c (to resume as part of HEP). LTG Duration 10 weeks R knee ROM Impairment R knee AROM 0-111 Skilled Nursing Goal (LTG) R knee AROM 0-120 degrees prior to d/c to assist with tolerating stairs and functional sit<->stand on low seats. LTG Duration 10 weeks Assessment Summary Assessment Pt continues to improve, taking fewer rests and no complaints of pain. Pt does note increasing fatigue throughout her session, but that's what I'm here for. Physical Therapy Plan Frequency and Duration Frequency of Treatment 2x/Week Duration of Treatment 10 weeks Plan of Care Start Date 12/21/18 Plan of Care End Date 03/01/19 Therapeutic Interventions Therapeutic Interventions Aquatic Therapy Balance Training Gait Training Home Exercise Program Manual Therapy Neuromuscular Re-education Patient/Caregiver Education Self-Care/Home Management Soft Tissue Mobilization Taping Therapeutic Activities Therapeutic Exercises Modalities Cold Pack/Ice Massage Electric Stimulation Hot Packs Ultrasound Next Visit Focus/Plan Next Note Type Treatment Note Next Visit Plan dynamic and static balance training, Shuttle Recovery, hip and R knee strengthening as tolerated
--- NOTE | 2019-01-08 11:54 | PT.OTN ---
Current Diagnoses Unilateral primary osteoarthritis, right knee (01/08/19) Other fracture of upper end of right tibia, initial encounter for closed fracture (01/08/19) Physical Therapy Treatment Note PT-OP-A Visit Information Start: 12/21/18 12:13 Freq: Status: Active Protocol: Document 01/08/19 11:15 DCW (Rec: 01/08/19 11:54 DCW [id number]) Out-Patient Physical Therapy Visit Information Visit Information Visit Type Treatment Note Visit Start Time 11:15 Visit Stop Time 12:00 Total Visit Minutes 45 Visit Number 6 Number of SAW EDGE FUSER CIRCULAR Visits 0 Evaluation Information Evaluation Date 12/21/18 PT-OP-B Current Condition Start: 12/21/18 12:13 Freq: Status: Active Protocol: Document 12/21/18 11:20 RCC (Rec: 12/21/18 12:49 RCC [email or web address]) Current Condition History of Current Condition Onset Date 2016 Current Complaints R knee pain, unable to walk community distances History of Current Condition Pt is a 77 y/o female presenting to physical therapy with a c/o R knee pain and difficulty with walking, onset 2017. Pt states that she initially injured her R knee getting out of her son's car, twisting, and felt a popping in the R knee. She reports she tore her lateral meniscus. Pt states that during surgery, her bone was cut resulting in fracture of the tibia. She had to have an additional surgery 2 weeks later for an ORIF- screws to stabilize the tibia. Pt went to [facility] s/p surgery and then also did OP PT at [facility]. She admits that she never got back to walking like she did prior to surgeries, and that she cannot now even walk around the block with her dog due to imbalances, pain and fatigue. 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, HTN, Therapy/Recovery high cholesterol PT-OP-C Subjective Start: 12/21/18 12:13 Freq: Status: Active Protocol: Document 01/08/19 11:15 DCW (Rec: 01/08/19 11:54 DCW [id number]) OP-PT Subjective Patient Comments Patient Comments I'm actually doing good. I've found out I like doing those squat-things. I can actually feel muscles forming in my legs. PT-OP-D Balance Start: 12/21/18 12:13 Freq: Status: Active Protocol: Document 12/21/18 11:20 RCC (Rec: 12/21/18 12:49 RCC [email or web address]) Balance Tests Single Limb Standing Single Limb- Right <1 sec Single Limb- Left 3 sec with increased sway PT-OP-E Functional Tests Start: 12/21/18 12:13 Freq: Status: Active Protocol: Document 12/21/18 11:20 RCC (Rec: 12/21/18 12:49 RCC [email or web address]) Functional Tests 6 Minute Walk Test Distance 686 ft Device Used none Comments 1.91 ft/sec Dynamic Gait Index (DGI) Score 15 DGI Impairment Rating 20 to <40% Impaired (Score 15- 19) PT-OP-F Manual Assessment Start: 12/21/18 12:13 Freq: Status: Active Protocol: Document 12/21/18 11:20 RCC (Rec: 12/21/18 12:49 RCC [email or web address]) Manual Assessments Soft Tissue Assessment Soft Tissue Mobility Assessment tenderness to palpation R adductors, pes anserine PT-OP-G Mobility & Gait Start: 12/21/18 12:13 Freq: Status: Active Protocol: Document 12/21/18 11:20 RCC (Rec: 12/21/18 12:49 RCC [email or web address]) OP Gait Assessment Comments Gait Comments decreased R knee flexion throughout gait, increased lateral sway, shortened step length bilaterally PT-OP-K Range of Motion Start: 12/21/18 12:13 Freq: Status: Active Protocol: Document 12/21/18 11:20 RCC (Rec: 12/21/18 12:49 RCC [email or web address]) Knee Goniometric Range of Motion Knee Measured in Degrees Right Patient Position Supine Flexion Active (degrees) 111 Flexion Passive (degrees) 115 Extension Active (degrees) 0 Left Patient Position Supine Flexion Active (degrees) 119 Flexion Passive (degrees) 122 Extension Active (degrees) 0 PT-OP-L Special Tests Start: 12/21/18 12:13 Freq: Status: Active Protocol: Document 12/21/18 11:20 RCC (Rec: 12/21/18 12:49 RCC [email or web address]) Special Tests Knee Special Tests Vilma Test Test Results negative B Radha's Test Results negative B Varus- 25 Degrees Test Results negative B Varus- 0 Degrees Test Results negative B Valgus- 25 Degrees Test Results negative B Valgus- 0 Degrees Test Results negative B PT-OP-M Strength Start: 12/21/18 12:13 Freq: Status: Active Protocol: Document 12/21/18 11:20 RCC (Rec: 12/21/18 12:49 RCC [email or web address]) Hip Strength Hip Manual Muscle Testing Right Flexion (L2) 4 Good External Rotation 4 Good Internal Rotation 4+ Good+ Left Flexion (L2) 4 Good External Rotation 4 Good Internal Rotation 4+ Good+ Knee Strength Knee Manual Muscle Testing Right Flexion (S2) 4+ Good+ Extension (L3) 4+ Good+ Left Flexion (S2) 5 Normal Extension (L3) 5 Normal Ankle/Foot Strength Ankle and Foot Manual Muscle Testing Right Dorsiflexion (L4) 5 Normal Comments SL heel raise: 4 reps Left Dorsiflexion (L4) 5 Normal Comments SL heel raise: 10 reps PT-OP-Q Treatments Start: 12/21/18 12:13 Freq: Status: Active Protocol: Document 01/08/19 11:15 DCW (Rec: 01/08/19 11:54 DCW [id number]) Cardio Equipment Recumbent Elliptical (Biodex) Duration (Minutes) 5 Resistance 5 Seat Position 7 Gym Equipment Shuttle Recovery Unilateral Squats Resistance 62# Shuttle Recovery Platform Stable Bilateral Squats Resistance 112# Shuttle Recovery Platform Stable Therapeutic Exercises Standing Exercises Hip Abduction Standing Exercise Name Abduction Side bilateral Resistance Lv 3 Equipment Used T-band Hip Extension Standing Exercise Name Extension Side bilateral Resistance Lv 3 Equipment Used T-band Terminal Knee Extension Standing Exercise Name TKE Side right Resistance Lv 3 Equipment Used T-band Squats Standing Exercise Name [place] at rail Reps/Minutes x20 Hamstring Curls Standing Exercise Name HS Curls Resistance 5# Reps/Minutes 2x10 Toe-taps Standing Exercise Name Toe-taps on 8 step Resistance 5# Other Exercises Hurdles Other Exercise Name Hurdles - Fwd and Lateral Resistance 5# Equipment Used Ankle weights Resisted Fwd/Retro Ambulation Other Exercise Name Resisted Fwd/Retro Ambulation Resistance Blue Equipment Used T-band Resisted Side-stepping Other Exercise Name Resisted Side-stepping Resistance Blue Equipment Used T-band PT-OP-T Assessment and Plan Start: 12/21/18 12:13 Freq: Status: Active Protocol: Document 01/08/19 11:15 DCW (Rec: 01/08/19 11:54 DCW [id number]) Physical Therapy Assessment Impairments Impairments Activity Tolerance Balance Functional Activities Functional Mobility Gait Pain ROM Soft Tissue Mobility Strength Goals 6 Minute Walk Test Impairment distance of 686 ft Short Term Goal (STG) Pt will ambulate >800 ft with 6 MWT, to demonstrate improved gait speed and tolerance. STG Duration 5 weeks Mcc Goal (LTG) Pt will ambulate at least 950 ft with 6 MWT, to demonstrate improved gait speed and tolerance prior to d/c. LTG Duration 10 weeks LE weakness Impairment bilateral LE weakness Senior It Specialist Goal (LTG) 5/5 R knee extension and flexion, bilateral hip flexion and ER to at least 4+/5 with manual muscle testing and be able to perform at least 10 repititions of SL heel raise on the R leg prior to d/c to demonstrate improvements in LE strength. Dynamic Gait Index Impairment DGI 15/24 Mcc Goal (LTG) Pt will score at least 20/24 on Dynamic Gait Index to indicate a decrease in fall risk and demonstrate improved dynamic activity tolerance prior to d/c. LTG Duration 10 weeks Home Walking Program Impairment unable to tolerate walking 1 block outdoors on level ground Short Term Goal (STG) Pt will be able to walk 10 min , 3 days/wk outdoors on level ground without increased pain or fatigue. STG Duration 5 week Senior It Specialist Goal (LTG) Pt will be able to walk at least 15 min, 5 days/wk outdoors on level ground without increased pain or fatigue prior to d/c (to resume as part of HEP). LTG Duration 10 weeks R knee ROM Impairment R knee AROM 0-111 Mcc Goal (LTG) R knee AROM 0-120 degrees prior to d/c to assist with tolerating stairs and functional sit<->stand on low seats. LTG Duration 10 weeks Assessment Summary Assessment Pt displaying improved strength and eccentric control of her right knee, resulting in improved functional mobility in her day-to-day life. Physical Therapy Plan Frequency and Duration Frequency of Treatment 2x/Week Duration of Treatment 10 weeks Plan of Care Start Date 12/21/18 Plan of Care End Date 03/01/19 Therapeutic Interventions Therapeutic Interventions Aquatic Therapy Balance Training Gait Training Home Exercise Program Manual Therapy Neuromuscular Re-education Patient/Caregiver Education Self-Care/Home Management Soft Tissue Mobilization Taping Therapeutic Activities Therapeutic Exercises Modalities Cold Pack/Ice Massage Electric Stimulation Hot Packs Ultrasound Next Visit Focus/Plan Next Note Type Treatment Note Next Visit Plan dynamic and static balance training, Shuttle Recovery, hip and R knee strengthening as tolerated
--- NOTE | 2019-01-11 11:57 | PT.OTN ---
Current Diagnoses Unilateral primary osteoarthritis, right knee (01/11/19) Other fracture of upper end of right tibia, initial encounter for closed fracture (01/11/19) Physical Therapy Treatment Note PT-OP-A Visit Information Start: 12/21/18 12:13 Freq: Status: Active Protocol: Document 01/11/19 11:15 DCW (Rec: 01/11/19 11:57 DCW [id number]) Out-Patient Physical Therapy Visit Information Visit Information Visit Type Treatment Note Visit Start Time 11:15 Visit Stop Time 12:00 Total Visit Minutes 45 Visit Number 7 Number of IN TUBE CONVERSION TECHNICIAN Visits 0 Evaluation Information Evaluation Date 12/21/18 PT-OP-B Current Condition Start: 12/21/18 12:13 Freq: Status: Active Protocol: Document 12/21/18 11:20 RCC (Rec: 12/21/18 12:49 RCC [email or web address]) Current Condition History of Current Condition Onset Date 2016 Current Complaints R knee pain, unable to walk community distances History of Current Condition Pt is a 77 y/o female presenting to physical therapy with a c/o R knee pain and difficulty with walking, onset 2017. Pt states that she initially injured her R knee getting out of her son's car, twisting, and felt a popping in the R knee. She reports she tore her lateral meniscus. Pt states that during surgery, her bone was cut resulting in fracture of the tibia. She had to have an additional surgery 2 weeks later for an ORIF- screws to stabilize the tibia. Pt went to [facility] s/p surgery and then also did OP PT at [facility]. She admits that she never got back to walking like she did prior to surgeries, and that she cannot now even walk around the block with her dog due to imbalances, pain and fatigue. 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 PT-OP-D Balance Start: 12/21/18 12:13 Freq: Status: Active Protocol: Document 12/21/18 11:20 RCC (Rec: 12/21/18 12:49 RCC [email or web address]) Balance Tests Single Limb Standing Single Limb- Right <1 sec Single Limb- Left 3 sec with increased sway PT-OP-E Functional Tests Start: 12/21/18 12:13 Freq: Status: Active Protocol: Document 12/21/18 11:20 RCC (Rec: 12/21/18 12:49 RCC [email or web address]) Functional Tests 6 Minute Walk Test Distance 686 ft Device Used none Comments 1.91 ft/sec Dynamic Gait Index (DGI) Score 15 DGI Impairment Rating 20 to <40% Impaired (Score 15- 19) PT-OP-F Manual Assessment Start: 12/21/18 12:13 Freq: Status: Active Protocol: Document 12/21/18 11:20 RCC (Rec: 12/21/18 12:49 RCC [email or web address]) Manual Assessments Soft Tissue Assessment Soft Tissue Mobility Assessment tenderness to palpation R adductors, pes anserine PT-OP-G Mobility & Gait Start: 12/21/18 12:13 Freq: Status: Active Protocol: Document 12/21/18 11:20 RCC (Rec: 12/21/18 12:49 RCC [email or web address]) OP Gait Assessment Comments Gait Comments decreased R knee flexion throughout gait, increased lateral sway, shortened step length bilaterally PT-OP-K Range of Motion Start: 12/21/18 12:13 Freq: Status: Active Protocol: Document 12/21/18 11:20 RCC (Rec: 12/21/18 12:49 RCC [email or web address]) Knee Goniometric Range of Motion Knee Measured in Degrees Right Patient Position Supine Flexion Active (degrees) 111 Flexion Passive (degrees) 115 Extension Active (degrees) 0 Left Patient Position Supine Flexion Active (degrees) 119 Flexion Passive (degrees) 122 Extension Active (degrees) 0 PT-OP-L Special Tests Start: 12/21/18 12:13 Freq: Status: Active Protocol: Document 12/21/18 11:20 RCC (Rec: 12/21/18 12:49 RCC [email or web address]) Special Tests Knee Special Tests Vilma Test Test Results negative B Radha's Test Results negative B Varus- 25 Degrees Test Results negative B Varus- 0 Degrees Test Results negative B Valgus- 25 Degrees Test Results negative B Valgus- 0 Degrees Test Results negative B PT-OP-M Strength Start: 12/21/18 12:13 Freq: Status: Active Protocol: Document 12/21/18 11:20 RCC (Rec: 12/21/18 12:49 RCC [email or web address]) Hip Strength Hip Manual Muscle Testing Right Flexion (L2) 4 Good External Rotation 4 Good Internal Rotation 4+ Good+ Left Flexion (L2) 4 Good External Rotation 4 Good Internal Rotation 4+ Good+ Knee Strength Knee Manual Muscle Testing Right Flexion (S2) 4+ Good+ Extension (L3) 4+ Good+ Left Flexion (S2) 5 Normal Extension (L3) 5 Normal Ankle/Foot Strength Ankle and Foot Manual Muscle Testing Right Dorsiflexion (L4) 5 Normal Comments SL heel raise: 4 reps Left Dorsiflexion (L4) 5 Normal Comments SL heel raise: 10 reps PT-OP-Q Treatments Start: 12/21/18 12:13 Freq: Status: Active Protocol: Document 01/11/19 11:15 DCW (Rec: 01/11/19 11:57 DCW [id number]) Cardio Equipment Recumbent Elliptical ([employer]) Duration (Minutes) 5 Resistance 6 Seat Position 7 Gym Equipment Cable Column (Body Solid) Hip Adduction Resistance 40# Hip Abduction Resistance 40# Shuttle Recovery Unilateral Squats Resistance 62# Shuttle Recovery Platform Stable Bilateral Squats Resistance 112# Shuttle Recovery Platform Stable Therapeutic Exercises Standing Exercises Squats Standing Exercise Name [place]quats at rail Reps/Minutes x20 Hamstring Curls Standing Exercise Name HS Curls Resistance 5# Reps/Minutes 2x15 Toe-taps Standing Exercise Name Toe-taps on 8 step Resistance 5# Other Exercises Hurdles Other Exercise Name Hurdles - Fwd and Lateral Resistance 5# Equipment Used Ankle weights Resisted Fwd/Retro Ambulation Other Exercise Name Resisted Fwd/Retro Ambulation Resistance Blue Equipment Used T-band Resisted Side-stepping Other Exercise Name Resisted Side-stepping Resistance Blue Equipment Used T-band PT-OP-T Assessment and Plan Start: 12/21/18 12:13 Freq: Status: Active Protocol: Document 01/11/19 11:15 DCW (Rec: 01/11/19 11:57 DCW [id number]) Physical Therapy Assessment Impairments Impairments Activity Tolerance Balance Functional Activities Functional Mobility Gait Pain ROM Soft Tissue Mobility Strength Goals 6 Minute Walk Test Impairment distance of 686 ft Short Term Goal (STG) Pt will ambulate >800 ft with 6 MWT, to demonstrate improved gait speed and tolerance. STG Duration 5 weeks Quality Systems Technician Goal (LTG) Pt will ambulate at least 950 ft with 6 MWT, to demonstrate improved gait speed and tolerance prior to d/c. LTG Duration 10 weeks LE weakness Impairment bilateral LE weakness Quality Systems Technician Goal (LTG) 5/5 R knee extension and flexion, bilateral hip flexion and ER to at least 4+/5 with manual muscle testing and be able to perform at least 10 repititions of SL heel raise on the R leg prior to d/c to demonstrate improvements in LE strength. Dynamic Gait Index Impairment DGI 15/24 Senior Living Goal (LTG) Pt will score at least 20/24 on Dynamic Gait Index to indicate a decrease in fall risk and demonstrate improved dynamic activity tolerance prior to d/c. LTG Duration 10 weeks Home Walking Program Impairment unable to tolerate walking 1 block outdoors on level ground Short Term Goal (STG) Pt will be able to walk 10 min , 3 days/wk outdoors on level ground without increased pain or fatigue. STG Duration 5 week Senior Living Goal (LTG) Pt will be able to walk at least 15 min, 5 days/wk outdoors on level ground without increased pain or fatigue prior to d/c (to resume as part of HEP). LTG Duration 10 weeks R knee ROM Impairment R knee AROM 0-111 Senior Living Goal (LTG) R knee AROM 0-120 degrees prior to d/c to assist with tolerating stairs and functional sit<->stand on low seats. LTG Duration 10 weeks Assessment Summary Assessment Pt continuing to progress, showing improvement in strength and an increased willingness to participate in her HEP. Physical Therapy Plan Frequency and Duration Frequency of Treatment 2x/Week Duration of Treatment 10 weeks Plan of Care Start Date 12/21/18 Plan of Care End Date 03/01/19 Therapeutic Interventions Therapeutic Interventions Aquatic Therapy Balance Training Gait Training Home Exercise Program Manual Therapy Neuromuscular Re-education Patient/Caregiver Education Self-Care/Home Management Soft Tissue Mobilization Taping Therapeutic Activities Therapeutic Exercises Modalities Cold Pack/Ice Massage Electric Stimulation Hot Packs Ultrasound Next Visit Focus/Plan Next Note Type Treatment Note Next Visit Plan dynamic and static balance training, Shuttle Recovery, hip and R knee strengthening as tolerated
--- NOTE | 2019-01-15 11:56 | PT.OTN ---
Current Diagnoses Unilateral primary osteoarthritis, right knee (01/15/19) Other fracture of upper end of right tibia, initial encounter for closed fracture (01/15/19) Physical Therapy Treatment Note PT-OP-A Visit Information Start: 12/21/18 12:13 Freq: Status: Active Protocol: Document 01/15/19 11:15 DCW (Rec: 01/15/19 11:56 DCW [id number]) Out-Patient Physical Therapy Visit Information Visit Information Visit Type Treatment Note Visit Start Time 11:15 Visit Stop Time 12:00 Total Visit Minutes 45 Visit Number 8 Number of SUBSTANCE ABUSE NURSE Visits 0 Evaluation Information Evaluation Date 12/21/18 PT-OP-B Current Condition Start: 12/21/18 12:13 Freq: Status: Active Protocol: Document 12/21/18 11:20 RCC (Rec: 12/21/18 12:49 RCC [email or web address]) Current Condition History of Current Condition Onset Date 2016 Current Complaints R knee pain, unable to walk community distances History of Current Condition Pt is a 77 y/o female presenting to physical therapy with a c/o R knee pain and difficulty with walking, onset 2017. Pt states that she initially injured her R knee getting out of her son's car, twisting, and felt a popping in the R knee. She reports she tore her lateral meniscus. Pt states that during surgery, her bone was cut resulting in fracture of the tibia. She had to have an additional surgery 2 weeks later for an ORIF- screws to stabilize the tibia. Pt went to [facility] s/p surgery and then also did OP PT at [facility]. She admits that she never got back to walking like she did prior to surgeries, and that she cannot now even walk around the block with her dog due to imbalances, pain and fatigue. 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 PT-OP-D Balance Start: 12/21/18 12:13 Freq: Status: Active Protocol: Document 12/21/18 11:20 RCC (Rec: 12/21/18 12:49 RCC [email or web address]) Balance Tests Single Limb Standing Single Limb- Right <1 sec Single Limb- Left 3 sec with increased sway PT-OP-E Functional Tests Start: 12/21/18 12:13 Freq: Status: Active Protocol: Document 12/21/18 11:20 RCC (Rec: 12/21/18 12:49 RCC [email or web address]) Functional Tests 6 Minute Walk Test Distance 686 ft Device Used none Comments 1.91 ft/sec Dynamic Gait Index (DGI) Score 15 DGI Impairment Rating 20 to <40% Impaired (Score 15- 19) PT-OP-F Manual Assessment Start: 12/21/18 12:13 Freq: Status: Active Protocol: Document 12/21/18 11:20 RCC (Rec: 12/21/18 12:49 RCC [email or web address]) Manual Assessments Soft Tissue Assessment Soft Tissue Mobility Assessment tenderness to palpation R adductors, pes anserine PT-OP-G Mobility & Gait Start: 12/21/18 12:13 Freq: Status: Active Protocol: Document 12/21/18 11:20 RCC (Rec: 12/21/18 12:49 RCC [email or web address]) OP Gait Assessment Comments Gait Comments decreased R knee flexion throughout gait, increased lateral sway, shortened step length bilaterally PT-OP-K Range of Motion Start: 12/21/18 12:13 Freq: Status: Active Protocol: Document 12/21/18 11:20 RCC (Rec: 12/21/18 12:49 RCC [email or web address]) Knee Goniometric Range of Motion Knee Measured in Degrees Right Patient Position Supine Flexion Active (degrees) 111 Flexion Passive (degrees) 115 Extension Active (degrees) 0 Left Patient Position Supine Flexion Active (degrees) 119 Flexion Passive (degrees) 122 Extension Active (degrees) 0 PT-OP-L Special Tests Start: 12/21/18 12:13 Freq: Status: Active Protocol: Document 12/21/18 11:20 RCC (Rec: 12/21/18 12:49 RCC [email or web address]) Special Tests Knee Special Tests Vilma Test Test Results negative B Radha's Test Results negative B Varus- 25 Degrees Test Results negative B Varus- 0 Degrees Test Results negative B Valgus- 25 Degrees Test Results negative B Valgus- 0 Degrees Test Results negative B PT-OP-M Strength Start: 12/21/18 12:13 Freq: Status: Active Protocol: Document 12/21/18 11:20 RCC (Rec: 12/21/18 12:49 RCC [email or web address]) Hip Strength Hip Manual Muscle Testing Right Flexion (L2) 4 Good External Rotation 4 Good Internal Rotation 4+ Good+ Left Flexion (L2) 4 Good External Rotation 4 Good Internal Rotation 4+ Good+ Knee Strength Knee Manual Muscle Testing Right Flexion (S2) 4+ Good+ Extension (L3) 4+ Good+ Left Flexion (S2) 5 Normal Extension (L3) 5 Normal Ankle/Foot Strength Ankle and Foot Manual Muscle Testing Right Dorsiflexion (L4) 5 Normal Comments SL heel raise: 4 reps Left Dorsiflexion (L4) 5 Normal Comments SL heel raise: 10 reps PT-OP-Q Treatments Start: 12/21/18 12:13 Freq: Status: Active Protocol: Document 01/15/19 11:15 DCW (Rec: 01/15/19 11:56 DCW [id number]) Cardio Equipment Recumbent Elliptical ([employer]) Duration (Minutes) 6 Resistance 6 Seat Position 7 Gym Equipment Cable Column (Body Solid) Hip Adduction Resistance 40# Hip Abduction Resistance 40# Shuttle Recovery Unilateral Squats Resistance 62# Shuttle Recovery Platform Stable Bilateral Squats Resistance 112# Shuttle Recovery Platform Stable Therapeutic Exercises Standing Exercises Hip Extension Standing Exercise Name Extension Side bilateral Resistance Lv 3 Equipment Used T-band Terminal Knee Extension Standing Exercise Name TKE Side right Resistance Lv 3 Equipment Used T-band Heelcord Stretch Standing Exercise Name Gastroc stretch Equipment Used LEIGH Other Exercises Hurdles Other Exercise Name Hurdles - Fwd and Lateral Resistance 5# Equipment Used Ankle weights Resisted Fwd/Retro Ambulation Other Exercise Name Resisted Fwd/Retro Ambulation Resistance Blue Equipment Used T-band Resisted Side-stepping Other Exercise Name Resisted Side-stepping Resistance Blue Equipment Used T-band PT-OP-T Assessment and Plan Start: 12/21/18 12:13 Freq: Status: Active Protocol: Document 01/15/19 11:15 DCW (Rec: 01/15/19 11:56 DCW [id number]) Physical Therapy Assessment Impairments Impairments Activity Tolerance Balance Functional Activities Functional Mobility Gait Pain ROM Soft Tissue Mobility Strength Goals 6 Minute Walk Test Impairment distance of 686 ft Short Term Goal (STG) Pt will ambulate >800 ft with 6 MWT, to demonstrate improved gait speed and tolerance. STG Duration 5 weeks Longterm Goal (LTG) Pt will ambulate at least 950 ft with 6 MWT, to demonstrate improved gait speed and tolerance prior to d/c. LTG Duration 10 weeks LE weakness Impairment bilateral LE weakness Longterm Goal (LTG) 5/5 R knee extension and flexion, bilateral hip flexion and ER to at least 4+/5 with manual muscle testing and be able to perform at least 10 repititions of SL heel raise on the R leg prior to d/c to demonstrate improvements in LE strength. Dynamic Gait Index Impairment DGI 15/24 Automatic Shirring Machine Operator Goal (LTG) Pt will score at least 20/24 on Dynamic Gait Index to indicate a decrease in fall risk and demonstrate improved dynamic activity tolerance prior to d/c. LTG Duration 10 weeks Home Walking Program Impairment unable to tolerate walking 1 block outdoors on level ground Short Term Goal (STG) Pt will be able to walk 10 min , 3 days/wk outdoors on level ground without increased pain or fatigue. STG Duration 5 week Automatic Shirring Machine Operator Goal (LTG) Pt will be able to walk at least 15 min, 5 days/wk outdoors on level ground without increased pain or fatigue prior to d/c (to resume as part of HEP). LTG Duration 10 weeks R knee ROM Impairment R knee AROM 0-111 Automatic Shirring Machine Operator Goal (LTG) R knee AROM 0-120 degrees prior to d/c to assist with tolerating stairs and functional sit<->stand on low seats. LTG Duration 10 weeks Assessment Summary Assessment Pt tolerating much more activity recently, although today did being surprised by how tired my legs feel today. Physical Therapy Plan Frequency and Duration Frequency of Treatment 2x/Week Duration of Treatment 10 weeks Plan of Care Start Date 12/21/18 Plan of Care End Date 03/01/19 Therapeutic Interventions Therapeutic Interventions Aquatic Therapy Balance Training Gait Training Home Exercise Program Manual Therapy Neuromuscular Re-education Patient/Caregiver Education Self-Care/Home Management Soft Tissue Mobilization Taping Therapeutic Activities Therapeutic Exercises Modalities Cold Pack/Ice Massage Electric Stimulation Hot Packs Ultrasound Next Visit Focus/Plan Next Note Type Treatment Note Next Visit Plan dynamic and static balance training, Shuttle Recovery, hip and R knee strengthening as tolerated
--- NOTE | 2019-01-18 13:28 | PT.OTN ---
Current Diagnoses Unilateral primary osteoarthritis, right knee (01/18/19) Other fracture of upper end of right tibia, initial encounter for closed fracture (01/18/19) Physical Therapy Treatment Note PT-OP-A Visit Information Start: 12/21/18 12:13 Freq: Status: Active Protocol: Document 01/18/19 11:15 DCW (Rec: 01/18/19 13:28 DCW [id number]) Out-Patient Physical Therapy Visit Information Visit Information Visit Type Treatment Note Visit Start Time 11:15 Visit Stop Time 12:00 Total Visit Minutes 45 Visit Number 9 Number of LEAD DATA ENTRY OPERATOR Visits 0 Evaluation Information Evaluation Date 12/21/18 PT-OP-B Current Condition Start: 12/21/18 12:13 Freq: Status: Active Protocol: Document 12/21/18 11:20 RCC (Rec: 12/21/18 12:49 RCC [email or web address]) Current Condition History of Current Condition Onset Date 2016 Current Complaints R knee pain, unable to walk community distances History of Current Condition Pt is a 77 y/o female presenting to physical therapy with a c/o R knee pain and difficulty with walking, onset 2017. Pt states that she initially injured her R knee getting out of her son's car, twisting, and felt a popping in the R knee. She reports she tore her lateral meniscus. Pt states that during surgery, her bone was cut resulting in fracture of the tibia. She had to have an additional surgery 2 weeks later for an ORIF- screws to stabilize the tibia. Pt went to [facility] s/p surgery and then also did OP PT at [facility]. She admits that she never got back to walking like she did prior to surgeries, and that she cannot now even walk around the block with her dog due to imbalances, pain and fatigue. 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 PT-OP-D Balance Start: 12/21/18 12:13 Freq: Status: Active Protocol: Document 12/21/18 11:20 RCC (Rec: 12/21/18 12:49 RCC [email or web address]) Balance Tests Single Limb Standing Single Limb- Right <1 sec Single Limb- Left 3 sec with increased sway PT-OP-E Functional Tests Start: 12/21/18 12:13 Freq: Status: Active Protocol: Document 12/21/18 11:20 RCC (Rec: 12/21/18 12:49 RCC [email or web address]) Functional Tests 6 Minute Walk Test Distance 686 ft Device Used none Comments 1.91 ft/sec Dynamic Gait Index (DGI) Score 15 DGI Impairment Rating 20 to <40% Impaired (Score 15- 19) PT-OP-F Manual Assessment Start: 12/21/18 12:13 Freq: Status: Active Protocol: Document 12/21/18 11:20 RCC (Rec: 12/21/18 12:49 RCC [email or web address]) Manual Assessments Soft Tissue Assessment Soft Tissue Mobility Assessment tenderness to palpation R adductors, pes anserine PT-OP-G Mobility & Gait Start: 12/21/18 12:13 Freq: Status: Active Protocol: Document 12/21/18 11:20 RCC (Rec: 12/21/18 12:49 RCC [email or web address]) OP Gait Assessment Comments Gait Comments decreased R knee flexion throughout gait, increased lateral sway, shortened step length bilaterally PT-OP-K Range of Motion Start: 12/21/18 12:13 Freq: Status: Active Protocol: Document 12/21/18 11:20 RCC (Rec: 12/21/18 12:49 RCC [email or web address]) Knee Goniometric Range of Motion Knee Measured in Degrees Right Patient Position Supine Flexion Active (degrees) 111 Flexion Passive (degrees) 115 Extension Active (degrees) 0 Left Patient Position Supine Flexion Active (degrees) 119 Flexion Passive (degrees) 122 Extension Active (degrees) 0 PT-OP-L Special Tests Start: 12/21/18 12:13 Freq: Status: Active Protocol: Document 12/21/18 11:20 RCC (Rec: 12/21/18 12:49 RCC [email or web address]) Special Tests Knee Special Tests Vilma Test Test Results negative B Radha's Test Results negative B Varus- 25 Degrees Test Results negative B Varus- 0 Degrees Test Results negative B Valgus- 25 Degrees Test Results negative B Valgus- 0 Degrees Test Results negative B PT-OP-M Strength Start: 12/21/18 12:13 Freq: Status: Active Protocol: Document 12/21/18 11:20 RCC (Rec: 12/21/18 12:49 RCC [email or web address]) Hip Strength Hip Manual Muscle Testing Right Flexion (L2) 4 Good External Rotation 4 Good Internal Rotation 4+ Good+ Left Flexion (L2) 4 Good External Rotation 4 Good Internal Rotation 4+ Good+ Knee Strength Knee Manual Muscle Testing Right Flexion (S2) 4+ Good+ Extension (L3) 4+ Good+ Left Flexion (S2) 5 Normal Extension (L3) 5 Normal Ankle/Foot Strength Ankle and Foot Manual Muscle Testing Right Dorsiflexion (L4) 5 Normal Comments SL heel raise: 4 reps Left Dorsiflexion (L4) 5 Normal Comments SL heel raise: 10 reps PT-OP-Q Treatments Start: 12/21/18 12:13 Freq: Status: Active Protocol: Document 01/18/19 11:15 DCW (Rec: 01/18/19 13:28 DCW [id number]) Cardio Equipment Recumbent Elliptical (Biodex) Duration (Minutes) 6 Resistance 6 Seat Position 7 Gym Equipment Cable Column (Body Solid) Hip Adduction Resistance 40# Hip Abduction Resistance 40# Shuttle Recovery Unilateral Squats Resistance 62# Shuttle Recovery Platform Stable Bilateral Squats Resistance 112# Shuttle Recovery Platform Stable Therapeutic Exercises Standing Exercises Hip Abduction Standing Exercise Name Abduction Side bilateral Resistance Lv 3 Equipment Used T-band Hip Extension Standing Exercise Name Extension Side bilateral Resistance Lv 3 Equipment Used T-band Terminal Knee Extension Standing Exercise Name TKE Side right Resistance Lv 3 Equipment Used T-band Heelcord Stretch Standing Exercise Name Gastroc stretch Equipment Used LEIGH Other Exercises Hurdles Other Exercise Name Hurdles - Fwd and Lateral Resistance 5# Equipment Used Ankle weights Resisted Fwd/Retro Ambulation Other Exercise Name Resisted Fwd/Retro Ambulation Resistance Blue Equipment Used T-band Resisted Side-stepping Other Exercise Name Resisted Side-stepping Resistance Blue Equipment Used T-band PT-OP-T Assessment and Plan Start: 12/21/18 12:13 Freq: Status: Active Protocol: Document 01/18/19 11:15 DCW (Rec: 01/18/19 13:28 DCW [id number]) Physical Therapy Assessment Impairments Impairments Activity Tolerance Balance Functional Activities Functional Mobility Gait Pain ROM Soft Tissue Mobility Strength Goals 6 Minute Walk Test Impairment distance of 686 ft Short Term Goal (STG) Pt will ambulate >800 ft with 6 MWT, to demonstrate improved gait speed and tolerance. STG Duration 5 weeks Broaching Machine Set Up Operator Goal (LTG) Pt will ambulate at least 950 ft with 6 MWT, to demonstrate improved gait speed and tolerance prior to d/c. LTG Duration 10 weeks LE weakness Impairment bilateral LE weakness Broaching Machine Set Up Operator Goal (LTG) 5/5 R knee extension and flexion, bilateral hip flexion and ER to at least 4+/5 with manual muscle testing and be able to perform at least 10 repititions of SL heel raise on the R leg prior to d/c to demonstrate improvements in LE strength. Dynamic Gait Index Impairment DGI 15/24 Broaching Machine Set Up Operator Goal (LTG) Pt will score at least 20/24 on Dynamic Gait Index to indicate a decrease in fall risk and demonstrate improved dynamic activity tolerance prior to d/c. LTG Duration 10 weeks Home Walking Program Impairment unable to tolerate walking 1 block outdoors on level ground Short Term Goal (STG) Pt will be able to walk 10 min , 3 days/wk outdoors on level ground without increased pain or fatigue. STG Duration 5 week Broaching Machine Set Up Operator Goal (LTG) Pt will be able to walk at least 15 min, 5 days/wk outdoors on level ground without increased pain or fatigue prior to d/c (to resume as part of HEP). LTG Duration 10 weeks R knee ROM Impairment R knee AROM 0-111 Broaching Machine Set Up Operator Goal (LTG) R knee AROM 0-120 degrees prior to d/c to assist with tolerating stairs and functional sit<->stand on low seats. LTG Duration 10 weeks Assessment Summary Assessment Pt complained of fatigued a lot today, however was surprised that she was able to perform her normal activities without any difficulty. Physical Therapy Plan Frequency and Duration Frequency of Treatment 2x/Week Duration of Treatment 10 weeks Plan of Care Start Date 12/21/18 Plan of Care End Date 03/01/19 Therapeutic Interventions Therapeutic Interventions Aquatic Therapy Balance Training Gait Training Home Exercise Program Manual Therapy Neuromuscular Re-education Patient/Caregiver Education Self-Care/Home Management Soft Tissue Mobilization Taping Therapeutic Activities Therapeutic Exercises Modalities Cold Pack/Ice Massage Electric Stimulation Hot Packs Ultrasound Next Visit Focus/Plan Next Note Type Treatment Note Next Visit Plan dynamic and static balance training, Shuttle Recovery, hip and R knee strengthening as tolerated
--- NOTE | 2019-01-22 11:57 | PT.OTN ---
Current Diagnoses Unilateral primary osteoarthritis, right knee (01/22/19) Other fracture of upper end of right tibia, initial encounter for closed fracture (01/22/19) Physical Therapy Treatment Note PT-OP-A Visit Information Start: 12/21/18 12:13 Freq: Status: Active Protocol: Document 01/22/19 11:15 DCW (Rec: 01/22/19 11:57 DCW [id number]) Out-Patient Physical Therapy Visit Information Visit Information Visit Type Treatment Note Visit Start Time 11:15 Visit Stop Time 12:00 Total Visit Minutes 45 Visit Number 10 Number of SEWER REPAIRER Visits 0 Evaluation Information Evaluation Date 12/21/18 PT-OP-B Current Condition Start: 12/21/18 12:13 Freq: Status: Active Protocol: Document 12/21/18 11:20 RCC (Rec: 12/21/18 12:49 RCC [email or web address]) Current Condition History of Current Condition Onset Date 2016 Current Complaints R knee pain, unable to walk community distances History of Current Condition Pt is a 77 y/o female presenting to physical therapy with a c/o R knee pain and difficulty with walking, onset 2017. Pt states that she initially injured her R knee getting out of her son's car, twisting, and felt a popping in the R knee. She reports she tore her lateral meniscus. Pt states that during surgery, her bone was cut resulting in fracture of the tibia. She had to have an additional surgery 2 weeks later for an ORIF- screws to stabilize the tibia. Pt went to [facility] s/p surgery and then also did OP PT at [facility]. She admits that she never got back to walking like she did prior to surgeries, and that she cannot now even walk around the block with her dog due to imbalances, pain and fatigue. 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, HTN, Therapy/Recovery high cholesterol PT-OP-C Subjective Start: 12/21/18 12:13 Freq: Status: Active Protocol: Document 01/22/19 11:15 DCW (Rec: 01/22/19 11:57 DCW [id number]) OP-PT Subjective Patient Comments Patient Comments Everything is pretty normal. Can't walk, knees hurt, but other than that, I'm fine. PT-OP-D Balance Start: 12/21/18 12:13 Freq: Status: Active Protocol: Document 12/21/18 11:20 RCC (Rec: 12/21/18 12:49 RCC [email or web address]) Balance Tests Single Limb Standing Single Limb- Right <1 sec Single Limb- Left 3 sec with increased sway PT-OP-E Functional Tests Start: 12/21/18 12:13 Freq: Status: Active Protocol: Document 12/21/18 11:20 RCC (Rec: 12/21/18 12:49 RCC [email or web address]) Functional Tests 6 Minute Walk Test Distance 686 ft Device Used none Comments 1.91 ft/sec Dynamic Gait Index (DGI) Score 15 DGI Impairment Rating 20 to <40% Impaired (Score 15- 19) PT-OP-F Manual Assessment Start: 12/21/18 12:13 Freq: Status: Active Protocol: Document 12/21/18 11:20 RCC (Rec: 12/21/18 12:49 RCC [email or web address]) Manual Assessments Soft Tissue Assessment Soft Tissue Mobility Assessment tenderness to palpation R adductors, pes anserine PT-OP-G Mobility & Gait Start: 12/21/18 12:13 Freq: Status: Active Protocol: Document 12/21/18 11:20 RCC (Rec: 12/21/18 12:49 RCC [email or web address]) OP Gait Assessment Comments Gait Comments decreased R knee flexion throughout gait, increased lateral sway, shortened step length bilaterally PT-OP-K Range of Motion Start: 12/21/18 12:13 Freq: Status: Active Protocol: Document 12/21/18 11:20 RCC (Rec: 12/21/18 12:49 RCC [email or web address]) Knee Goniometric Range of Motion Knee Measured in Degrees Right Patient Position Supine Flexion Active (degrees) 111 Flexion Passive (degrees) 115 Extension Active (degrees) 0 Left Patient Position Supine Flexion Active (degrees) 119 Flexion Passive (degrees) 122 Extension Active (degrees) 0 PT-OP-L Special Tests Start: 12/21/18 12:13 Freq: Status: Active Protocol: Document 12/21/18 11:20 RCC (Rec: 12/21/18 12:49 RCC [email or web address]) Special Tests Knee Special Tests Vilma Test Test Results negative B Radha's Test Results negative B Varus- 25 Degrees Test Results negative B Varus- 0 Degrees Test Results negative B Valgus- 25 Degrees Test Results negative B Valgus- 0 Degrees Test Results negative B PT-OP-M Strength Start: 12/21/18 12:13 Freq: Status: Active Protocol: Document 12/21/18 11:20 RCC (Rec: 12/21/18 12:49 RCC [email or web address]) Hip Strength Hip Manual Muscle Testing Right Flexion (L2) 4 Good External Rotation 4 Good Internal Rotation 4+ Good+ Left Flexion (L2) 4 Good External Rotation 4 Good Internal Rotation 4+ Good+ Knee Strength Knee Manual Muscle Testing Right Flexion (S2) 4+ Good+ Extension (L3) 4+ Good+ Left Flexion (S2) 5 Normal Extension (L3) 5 Normal Ankle/Foot Strength Ankle and Foot Manual Muscle Testing Right Dorsiflexion (L4) 5 Normal Comments SL heel raise: 4 reps Left Dorsiflexion (L4) 5 Normal Comments SL heel raise: 10 reps PT-OP-Q Treatments Start: 12/21/18 12:13 Freq: Status: Active Protocol: Document 01/22/19 11:15 DCW (Rec: 01/22/19 11:57 DCW [id number]) Cardio Equipment Recumbent Elliptical (Biodex) Duration (Minutes) 6 Resistance 6 Seat Position 7 Gym Equipment Cable Column (Body Solid) Hip Adduction Resistance 40# Hip Abduction Resistance 40# Shuttle Recovery Unilateral Squats Resistance 62# Shuttle Recovery Platform Stable Bilateral Squats Resistance 112# Shuttle Recovery Platform Stable Shuttle Balance Red Details Wide COLIN, Staggered Stance Therapeutic Exercises Other Exercises Hurdles Other Exercise Name Hurdles - Fwd and Lateral Resistance 5# Equipment Used Ankle weights Resisted Fwd/Retro Ambulation Other Exercise Name Resisted Fwd/Retro Ambulation Resistance Blue Equipment Used T-band Resisted Side-stepping Other Exercise Name Resisted Side-stepping Resistance Blue Equipment Used T-band PT-OP-T Assessment and Plan Start: 12/21/18 12:13 Freq: Status: Active Protocol: Document 05/06/19 11:15 DCW (Rec: 01/22/19 11:57 DCW [id number]) Physical Therapy Assessment Impairments Impairments Activity Tolerance Balance Functional Activities Functional Mobility Gait Pain ROM Soft Tissue Mobility Strength Goals 6 Minute Walk Test Impairment distance of 686 ft Short Term Goal (STG) Pt will ambulate >800 ft with 6 MWT, to demonstrate improved gait speed and tolerance. STG Duration 5 weeks Jewel Bearing Broacher Goal (LTG) Pt will ambulate at least 950 ft with 6 MWT, to demonstrate improved gait speed and tolerance prior to d/c. LTG Duration 10 weeks LE weakness Impairment bilateral LE weakness Jewel Bearing Broacher Goal (LTG) 5/5 R knee extension and flexion, bilateral hip flexion and ER to at least 4+/5 with manual muscle testing and be able to perform at least 10 repititions of SL heel raise on the R leg prior to d/c to demonstrate improvements in LE strength. Dynamic Gait Index Impairment DGI 1524 Mcc Goal (LTG) Pt will score at least 20/24 on Dynamic Gait Index to indicate a decrease in fall risk and demonstrate improved dynamic activity tolerance prior to d/c. LTG Duration 10 weeks Home Walking Program Impairment unable to tolerate walking 1 block outdoors on level ground Short Term Goal (STG) Pt will be able to walk 10 min , 3 days/wk outdoors on level ground without increased pain or fatigue. STG Duration 5 week Mcc Goal (LTG) Pt will be able to walk at least 15 min, 5 days/wk outdoors on level ground without increased pain or fatigue prior to d/c (to resume as part of HEP). LTG Duration 10 weeks R knee ROM Impairment R knee AROM 0-111 Mcc Goal (LTG) R knee AROM 0-120 degrees prior to d/c to assist with tolerating stairs and functional sit<->stand on low seats. LTG Duration 10 weeks Assessment Summary Assessment Pt approaching end of scheduled appointments, feels at this time like she is likely alright to transition to an independent program. Physical Therapy Plan Frequency and Duration Frequency of Treatment 2x/Week Duration of Treatment 10 weeks Plan of Care Start Date 12/21/18 Plan of Care End Date 03/01/19 Therapeutic Interventions Therapeutic Interventions Aquatic Therapy Balance Training Gait Training Home Exercise Program Manual Therapy Neuromuscular Re-education Patient/Caregiver Education Self-Care/Home Management Soft Tissue Mobilization Taping Therapeutic Activities Therapeutic Exercises Modalities Cold Pack/Ice Massage Electric Stimulation Hot Packs Ultrasound Next Visit Focus/Plan Next Note Type Treatment Note Next Visit Plan dynamic and static balance training, Shuttle Recovery, hip and R knee strengthening as tolerated
--- NOTE | 2019-01-25 11:56 | PT.OTN ---
Current Diagnoses Unilateral primary osteoarthritis, right knee (01/25/19) Other fracture of upper end of right tibia, initial encounter for closed fracture (01/25/19) Physical Therapy Treatment Note PT-OP-A Visit Information Start: 12/21/18 12:13 Freq: Status: Active Protocol: Document 01/25/19 11:15 DCW (Rec: 01/25/19 11:56 DCW [id number]) Out-Patient Physical Therapy Visit Information Visit Information Visit Type Treatment Note Visit Start Time 11:15 Visit Stop Time 12:00 Total Visit Minutes 45 Visit Number 11 Number of SUPERVISORY AIDE Visits 0 Evaluation Information Evaluation Date 12/21/18 PT-OP-B Current Condition Start: 12/21/18 12:13 Freq: Status: Active Protocol: Document 12/21/18 11:20 RCC (Rec: 12/21/18 12:49 RCC [email or web address]) Current Condition History of Current Condition Onset Date 2016 Current Complaints R knee pain, unable to walk community distances History of Current Condition Pt is a 77 y/o female presenting to physical therapy with a c/o R knee pain and difficulty with walking, onset 2017. Pt states that she initially injured her R knee getting out of her son's car, twisting, and felt a popping in the R knee. She reports she tore her lateral meniscus. Pt states that during surgery, her bone was cut resulting in fracture of the tibia. She had to have an additional surgery 2 weeks later for an ORIF- screws to stabilize the tibia. Pt went to [facility] s/p surgery and then also did OP PT at [facility]. She admits that she never got back to walking like she did prior to surgeries, and that she cannot now even walk around the block with her dog due to imbalances, pain and fatigue. 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 PT-OP-D Balance Start: 12/21/18 12:13 Freq: Status: Active Protocol: Document 12/21/18 11:20 RCC (Rec: 12/21/18 12:49 RCC [email or web address]) Balance Tests Single Limb Standing Single Limb- Right <1 sec Single Limb- Left 3 sec with increased sway PT-OP-E Functional Tests Start: 12/21/18 12:13 Freq: Status: Active Protocol: Document 12/21/18 11:20 RCC (Rec: 12/21/18 12:49 RCC [email or web address]) Functional Tests 6 Minute Walk Test Distance 686 ft Device Used none Comments 1.91 ft/sec Dynamic Gait Index (DGI) Score 15 DGI Impairment Rating 20 to <40% Impaired (Score 15- 19) PT-OP-F Manual Assessment Start: 12/21/18 12:13 Freq: Status: Active Protocol: Document 12/21/18 11:20 RCC (Rec: 12/21/18 12:49 RCC [email or web address]) Manual Assessments Soft Tissue Assessment Soft Tissue Mobility Assessment tenderness to palpation R adductors, pes anserine PT-OP-G Mobility & Gait Start: 12/21/18 12:13 Freq: Status: Active Protocol: Document 12/21/18 11:20 RCC (Rec: 12/21/18 12:49 RCC [email or web address]) OP Gait Assessment Comments Gait Comments decreased R knee flexion throughout gait, increased lateral sway, shortened step length bilaterally PT-OP-K Range of Motion Start: 12/21/18 12:13 Freq: Status: Active Protocol: Document 12/21/18 11:20 RCC (Rec: 12/21/18 12:49 RCC [email or web address]) Knee Goniometric Range of Motion Knee Measured in Degrees Right Patient Position Supine Flexion Active (degrees) 111 Flexion Passive (degrees) 115 Extension Active (degrees) 0 Left Patient Position Supine Flexion Active (degrees) 119 Flexion Passive (degrees) 122 Extension Active (degrees) 0 PT-OP-L Special Tests Start: 12/21/18 12:13 Freq: Status: Active Protocol: Document 12/21/18 11:20 RCC (Rec: 12/21/18 12:49 RCC [email or web address]) Special Tests Knee Special Tests Vilma Test Test Results negative B Radha's Test Results negative B Varus- 25 Degrees Test Results negative B Varus- 0 Degrees Test Results negative B Valgus- 25 Degrees Test Results negative B Valgus- 0 Degrees Test Results negative B PT-OP-M Strength Start: 12/21/18 12:13 Freq: Status: Active Protocol: Document 12/21/18 11:20 RCC (Rec: 12/21/18 12:49 RCC [email or web address]) Hip Strength Hip Manual Muscle Testing Right Flexion (L2) 4 Good External Rotation 4 Good Internal Rotation 4+ Good+ Left Flexion (L2) 4 Good External Rotation 4 Good Internal Rotation 4+ Good+ Knee Strength Knee Manual Muscle Testing Right Flexion (S2) 4+ Good+ Extension (L3) 4+ Good+ Left Flexion (S2) 5 Normal Extension (L3) 5 Normal Ankle/Foot Strength Ankle and Foot Manual Muscle Testing Right Dorsiflexion (L4) 5 Normal Comments SL heel raise: 4 reps Left Dorsiflexion (L4) 5 Normal Comments SL heel raise: 10 reps PT-OP-Q Treatments Start: 12/21/18 12:13 Freq: Status: Active Protocol: Document 01/25/19 11:15 DCW (Rec: 01/25/19 11:56 DCW [id number]) Cardio Equipment Recumbent Elliptical (Biodex) Duration (Minutes) 6 Resistance 6 Seat Position 7 Gym Equipment Cable Column (Body Solid) Hip Adduction Resistance 45# Hip Abduction Resistance 45# Shuttle Recovery Unilateral Squats Resistance 62# Shuttle Recovery Platform Stable Bilateral Squats Resistance 112# Shuttle Recovery Platform Stable Shuttle Balance Red Details Wide COLIN, Staggered Stance Therapeutic Exercises Standing Exercises Heelcord Stretch Standing Exercise Name Gastroc stretch Equipment Used LEIGH Squats Standing Exercise Name Minisquats at rail Reps/Minutes x20 Other Exercises Hurdles Other Exercise Name Hurdles - Fwd and Lateral Resistance 5# Equipment Used Ankle weights Resisted Fwd/Retro Ambulation Other Exercise Name Resisted Fwd/Retro Ambulation Resistance Blue Equipment Used T-band Resisted Side-stepping Other Exercise Name Resisted Side-stepping Resistance Blue Equipment Used T-band PT-OP-T Assessment and Plan Start: 12/21/18 12:13 Freq: Status: Active Protocol: Document 01/25/19 11:15 DCW (Rec: 01/25/19 11:56 DCW [id number]) Physical Therapy Assessment Impairments Impairments Activity Tolerance Balance Functional Activities Functional Mobility Gait Pain ROM Soft Tissue Mobility Strength Goals 6 Minute Walk Test Impairment distance of 686 ft Short Term Goal (STG) Pt will ambulate >800 ft with 6 MWT, to demonstrate improved gait speed and tolerance. STG Duration 5 weeks Boring Inspector Goal (LTG) Pt will ambulate at least 950 ft with 6 MWT, to demonstrate improved gait speed and tolerance prior to d/c. LTG Duration 10 weeks LE weakness Impairment bilateral LE weakness Mcfp Goal (LTG) 5/5 R knee extension and flexion, bilateral hip flexion and ER to at least 4+/5 with manual muscle testing and be able to perform at least 10 repititions of SL heel raise on the R leg prior to d/c to demonstrate improvements in LE strength. Dynamic Gait Index Impairment DGI 15/24 Mcfp Goal (LTG) Pt will score at least 20/24 on Dynamic Gait Index to indicate a decrease in fall risk and demonstrate improved dynamic activity tolerance prior to d/c. LTG Duration 10 weeks Home Walking Program Impairment unable to tolerate walking 1 block outdoors on level ground Short Term Goal (STG) Pt will be able to walk 10 min , 3 days/wk outdoors on level ground without increased pain or fatigue. STG Duration 5 week Mcfp Goal (LTG) Pt will be able to walk at least 15 min, 5 days/wk outdoors on level ground without increased pain or fatigue prior to d/c (to resume as part of HEP). LTG Duration 10 weeks R knee ROM Impairment R knee AROM 0-111 Mcfp Goal (LTG) R knee AROM 0-120 degrees prior to d/c to assist with tolerating stairs and functional sit<->stand on low seats. LTG Duration 10 weeks Assessment Summary Assessment Pt interested in a full HEP for home at her next appointment, which is her last scheduled, and she plans on discharge following it. Physical Therapy Plan Frequency and Duration Frequency of Treatment 2x/Week Duration of Treatment 10 weeks Plan of Care Start Date 12/21/18 Plan of Care End Date 03/01/19 Therapeutic Interventions Therapeutic Interventions Aquatic Therapy Balance Training Gait Training Home Exercise Program Manual Therapy Neuromuscular Re-education Patient/Caregiver Education Self-Care/Home Management Soft Tissue Mobilization Taping Therapeutic Activities Therapeutic Exercises Modalities Cold Pack/Ice Massage Electric Stimulation Hot Packs Ultrasound Next Visit Focus/Plan Next Note Type Discharge Summary Next Visit Plan Reassessment, HEP
--- NOTE | 2019-01-29 11:58 | PT.OTN ---
Current Diagnoses Unilateral primary osteoarthritis, right knee (01/29/19) Other fracture of upper end of right tibia, initial encounter for closed fracture (01/29/19) Physical Therapy Treatment Note PT-OP-A Visit Information Start: 12/21/18 12:13 Freq: Status: Active Protocol: Document 01/29/19 11:15 DCW (Rec: 01/29/19 11:58 DCW [id number]) Out-Patient Physical Therapy Visit Information Visit Information Visit Type Discharge Summary Visit Start Time 11:15 Visit Stop Time 12:00 Total Visit Minutes 40 Visit Number 12 Number of KEG FILLER Visits 0 Evaluation Information Evaluation Date 12/21/18 PT-OP-B Current Condition Start: 12/21/18 12:13 Freq: Status: Active Protocol: Document 12/21/18 11:20 RCC (Rec: 12/21/18 12:49 RCC [email or web address]) Current Condition History of Current Condition Onset Date 2016 Current Complaints R knee pain, unable to walk community distances History of Current Condition Pt is a 77 y/o female presenting to physical therapy with a c/o R knee pain and difficulty with walking, onset 2017. Pt states that she initially injured her R knee getting out of her son's car, twisting, and felt a popping in the R knee. She reports she tore her lateral meniscus. Pt states that during surgery, her bone was cut resulting in fracture of the tibia. She had to have an additional surgery 2 weeks later for an ORIF- screws to stabilize the tibia. Pt went to [facility] s/p surgery and then also did OP PT at [facility]. She admits that she never got back to walking like she did prior to surgeries, and that she cannot now even walk around the block with her dog due to imbalances, pain and fatigue. 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, HTN, Therapy/Recovery high cholesterol PT-OP-C Subjective Start: 12/21/18 12:13 Freq: Status: Active Protocol: Document 01/29/19 11:15 DCW (Rec: 01/29/19 11:58 DCW [id number]) OP-PT Subjective Patient Comments Patient Comments Pt ready for discharge and to transition to an [facility] PT-OP-D Balance Start: 12/21/18 12:13 Freq: Status: Active Protocol: Document 01/29/19 11:15 DCW (Rec: 01/29/19 11:52 DCW [id number]) Balance Tests Single Limb Standing Single Limb- Right 3 sec with increased sway Single Limb- Left 3 sec with increased sway PT-OP-E Functional Tests Start: 12/21/18 12:13 Freq: Status: Active Protocol: Document 01/29/19 11:15 DCW (Rec: 01/29/19 11:52 DCW [id number]) Functional Tests 6 Minute Walk Test Distance 1019 Comments 2.83 ft/sec Dynamic Gait Index (DGI) Score 19 DGI Impairment Rating 20 to <40% Impaired (Score 15- 19) PT-OP-F Manual Assessment Start: 12/21/18 12:13 Freq: Status: Active Protocol: Document 12/21/18 11:20 RCC (Rec: 12/21/18 12:49 RCC [email or web address]) Manual Assessments Soft Tissue Assessment Soft Tissue Mobility Assessment tenderness to palpation R adductors, pes anserine PT-OP-G Mobility & Gait Start: 12/21/18 12:13 Freq: Status: Active Protocol: Document 12/21/18 11:20 RCC (Rec: 12/21/18 12:49 RCC [email or web address]) OP Gait Assessment Comments Gait Comments decreased R knee flexion throughout gait, increased lateral sway, shortened step length bilaterally PT-OP-K Range of Motion Start: 12/21/18 12:13 Freq: Status: Active Protocol: Document 12/21/18 11:20 RCC (Rec: 12/21/18 12:49 RCC [email or web address]) Knee Goniometric Range of Motion Knee Measured in Degrees Right Patient Position Supine Flexion Active (degrees) 111 Flexion Passive (degrees) 115 Extension Active (degrees) 0 Left Patient Position Supine Flexion Active (degrees) 119 Flexion Passive (degrees) 122 Extension Active (degrees) 0 PT-OP-L Special Tests Start: 12/21/18 12:13 Freq: Status: Active Protocol: Document 12/21/18 11:20 RCC (Rec: 12/21/18 12:49 RCC [email or web address]) Special Tests Knee Special Tests Vilma Test Test Results negative B Radha's Test Results negative B Varus- 25 Degrees Test Results negative B Varus- 0 Degrees Test Results negative B Valgus- 25 Degrees Test Results negative B Valgus- 0 Degrees Test Results negative B PT-OP-M Strength Start: 12/21/18 12:13 Freq: Status: Active Protocol: Document 12/21/18 11:20 RCC (Rec: 12/21/18 12:49 RCC [email or web address]) Hip Strength Hip Manual Muscle Testing Right Flexion (L2) 4 Good External Rotation 4 Good Internal Rotation 4+ Good+ Left Flexion (L2) 4 Good External Rotation 4 Good Internal Rotation 4+ Good+ Knee Strength Knee Manual Muscle Testing Right Flexion (S2) 4+ Good+ Extension (L3) 4+ Good+ Left Flexion (S2) 5 Normal Extension (L3) 5 Normal Ankle/Foot Strength Ankle and Foot Manual Muscle Testing Right Dorsiflexion (L4) 5 Normal Comments SL heel raise: 4 reps Left Dorsiflexion (L4) 5 Normal Comments SL heel raise: 10 reps PT-OP-Q Treatments Start: 12/21/18 12:13 Freq: Status: Active Protocol: Document 01/29/19 11:15 DCW (Rec: 01/29/19 11:58 DCW [id number]) Neuro Re-Education Treatment Balance Activities Testing Details 6 MWT, DGI testing Self-Care/Home Management Treatment Education Patient Education Fall Risk Home Exercise Program Safety Other Education See paper chart for HEP program PT-OP-T Assessment and Plan Start: 12/21/18 12:13 Freq: Status: Active Protocol: Document 01/29/19 11:15 DCW (Rec: 01/29/19 11:58 DCW [id number]) Physical Therapy Assessment Impairments Impairments Activity Tolerance Balance Functional Activities Functional Mobility Gait Pain ROM Soft Tissue Mobility Strength Goals 6 Minute Walk Test Impairment distance of 686 ft Short Term Goal (STG) Pt will ambulate >800 ft with 6 MWT, to demonstrate improved gait speed and tolerance. STG Duration Met Halver Machine Operator Goal (LTG) Pt will ambulate at least 950 ft with 6 MWT, to demonstrate improved gait speed and tolerance prior to d/c. LTG Duration Met LE weakness Impairment bilateral LE weakness Halver Machine Operator Goal (LTG) 5/5 R knee extension and flexion, bilateral hip flexion and ER to at least 4+/5 with manual muscle testing and be able to perform at least 10 repititions of SL heel raise on the R leg prior to d/c to demonstrate improvements in LE strength. Dynamic Gait Index Impairment DGI Custodial Goal (LTG) Pt will score at least 20/24 on Dynamic Gait Index to indicate a decrease in fall risk and demonstrate improved dynamic activity tolerance prior to d/c. LTG Duration Improving () Home Walking Program Impairment unable to tolerate walking 1 block outdoors on level ground Short Term Goal (STG) Pt will be able to walk 10 min , 3 days/wk outdoors on level ground without increased pain or fatigue. STG Duration Met Custodial Goal (LTG) Pt will be able to walk at least 15 min, 5 days/wk outdoors on level ground without increased pain or fatigue prior to d/c (to resume as part of HEP). LTG Duration Improving R knee ROM Impairment R knee AROM 0-111 Halver Machine Operator Goal (LTG) R knee AROM 0-120 degrees prior to d/c to assist with tolerating stairs and functional sit<->stand on low seats. LTG Duration 10 weeks Progress Towards Goals Progress Towards Goals Progressing Toward Goals Assessment Summary Assessment Pt progressing toward meeting nearly all goals, is appropriate for discharge to independent [facility] at this time. Physical Therapy Plan Frequency and Duration Frequency of Treatment 2x/Week Duration of Treatment 10 weeks Plan of Care Start Date 12/21/18 Plan of Care End Date 03/01/19 Therapeutic Interventions Therapeutic Interventions Aquatic Therapy Balance Training Gait Training Home Exercise Program Manual Therapy Neuromuscular Re-education Patient/Caregiver Education Self-Care/Home Management Soft Tissue Mobilization Taping Therapeutic Activities Therapeutic Exercises Modalities Cold Pack/Ice Massage Electric Stimulation Hot Packs Ultrasound Discharge Physical Therapy Discharge Comments Discharge to independent [facility] Next Visit Focus/Plan Next Note Type Discharge Summary
== END 2019-01-29 12:18 | disposition home or self-care (01) ==
LOC: PHYS 11:15
PROVIDERS: Family Provider Family Medicine; PCP Family Medicine; Visit Provider Orthopaedic Surgery
DX: S82.191A Other fracture of upper end of right tibia, initial encounter for closed fracture (principal); M17.11 Unilateral primary osteoarthritis, right knee
CPT/HCPCS: 97110; 97112; 97161; 97535

== ENCOUNTER → 2020-12-01 15:21 | Outpatient (CLI) | payer MEDICARE, OTHER, SELFPAY ==
[2020-12-01] MEDS: COVID-19 VACC, Ad26(JANSSEN)/PF 0.5 ML IM (15:32)
== END ==
PROVIDERS: Visit Provider Internal Medicine
DX: Z23 Encounter for immunization (principal)
CPT/HCPCS: 0031A; 91303